=== PATIENT | male | born 1950 | race Caucasian/White ===

== ENCOUNTER 2022-10-01 14:42 | Inpatient (IN) ==
[2022-10-01] MEDS ORDERED: VENTOLIN or PROAIR HFA IN PRN (18:28)
[2022-10-01] MEDS ORDERED: LR 1,000 ML IV 1,000 ML IV ONE ×2 (18:45→19:34)
[2022-10-01 19:34] LABS: BASOPHILS # (AUTO) 0.1 X10^3/uL (0.0-0.1); BASOPHILS % (AUTO) 0.8 % (0.2-1.0); EOSINOPHILS % (AUTO) 0.6 % (0.9-2.9); HEMATOCRIT 41.4 % (42.0-54.0); HEMOGLOBIN 13.4 g/dL (13.5-18.0); LYMPHOCYTES % (AUTO) 12.9 % (21.0-51.0); MEAN CORPUSCULAR HEMOGLOBIN 25.6 pg (27.0-34.0); MEAN CORPUSCULAR HGB CONC 32.4 g/dL (33.0-35.0); MEAN PLATELET VOLUME 7.9 fL (7.4-11.0); MONOCYTES # (AUTO) 0.8 x10^3/uL (0.3-0.8); MONOCYTES % (AUTO) 9.9 % (0.0-13.0); NEUTROPHILS % (AUTO) 75.8 % (42.0-75.0); RED BLOOD COUNT 5.24 X10^6/uL (4.7-6.0); RED CELL DISTRIBUTION WIDTH 18.5 % (11.6-16.5); WHITE BLOOD COUNT 7.9 X10^3/uL (3.6-10.0)
[2022-10-01] MEDS ORDERED: CRESTOR TAB 10 MG PO ONE (19:34)
[2022-10-01] MEDS: LR 1,000 ML IV 1,000 ML IV SCH (19:44)
[2022-10-01 20:36] LABS: ALANINE AMINOTRANSFERASE 33 Units/L (12-78); ALBUMIN 3.4 g/dL (3.4-5.0); ALKALINE PHOSPHATASE 120 Units/L (46-116); ASPARTATE AMINO TRANSFERASE 34 Units/L (15-37); BLOOD UREA NITROGEN 23 mg/dL (7-18); CALCIUM 9.1 mg/dL (8.5-10.1); CARBON DIOXIDE 32.8 mmol/L (21-32); CHLORIDE 100 mmol/L (98-107); CREATININE 1.13 mg/dL (0.70-1.30); SODIUM 139 mmol/L (136-145); TOTAL PROTEIN 7.6 g/dL (6.4-8.2); eGFR NON BLACK RACES > 60 (>60)
[2022-10-01] MEDS ORDERED: PERCOCET TAB 5/325 MG ONE (20:50)
[2022-10-01] MEDS: CRESTOR TAB 10 MG PO SCH (20:55)
[2022-10-01] MEDS: PERCOCET TAB 5/325 MG PO PRN (20:57)
--- NOTE | 2022-10-01 23:20 | DR.UPDATE ---
H&P UPDATE Review Yes Any changes to H&P?: Yes
[2022-10-01] MEDS ORDERED: XOPENEX 1.25 MG/3 ML NEBULE NEB ONE (23:55)
[2022-10-02] MEDS: XOPENEX 1.25 MG/3 ML NEBULE NEB PRN ×3 (00:12→20:16)
[2022-10-02] MEDS: LR 1,000 ML IV 1,000 ML IV SCH ×3 (05:50→21:37)
[2022-10-02] MEDS ORDERED: LOVENOX INJ 40 MG SYR SC ONE (08:40)
[2022-10-02] MEDS ORDERED: PERCOCET TAB 5/325 MG ONE (08:48)
[2022-10-02] MEDS: PERCOCET TAB 5/325 MG PO PRN ×2 (08:54→19:04)
[2022-10-02] MEDS: LOVENOX INJ 40 MG SYR SC SCH (08:55)
[2022-10-02] MEDS ORDERED: REFLEX: PROVENTIL NEB & PulmiCORT NEB~ NEB SCH (09:00)
--- NOTE | 2022-10-02 17:05 | EKG ---
Test Reason : md order Blood Pressure : */* mmHG Vent. Rate : 113 BPM Atrial Rate : 286 BPM P-R Int : * ms QRS Dur : 90 ms QT Int : 278 ms P-R-T Axes : * 4 25 degrees QTc Int : 381 ms Atrial flutter with variable AV block Nonspecific ST abnormality Abnormal ECG Confirmed by Guanaco Daiz ([id number]) on 10/03/2022 7:43:31 AM Referred By: Confirmed By: Guanaco Diaz
--- NOTE | 2022-10-02 17:59 | NOTE.SOAP ---
Soap Note Note for Day of Date of Exam: 10/02/22 Subjective Data Subjective Data: Non healing wound dorsum of the left foot with significant swelling most likely venous in origin Objective Data Temperature: 97.5 F Pulse Rate: 117 Respiratory Rate: 24 Blood Pressure: 161/75 O2 Sat by Pulse Oximetry: 91 Objective Data: Wound unchanged left dorsal foot. Arterial doppler shows biphasic flow throughout left leg and foot , right leg with monophasic flow beginning in the right SFA and continued distally but good velocities of the left leg arteries . Venous insufficiency studies show clinical consistency with bilateral iliac vein compressio, worse on left and bilateral greater saphenous vein insufficiency. Assessment Assessment: Bilateral iliac vein compression , worse on left . Bilateral greater saphenous vein insufficiency. Plan Plan: Plan bilateral iliac venograms and bilateral iliac vein intravascular ultrasound and possible stenting of the left iliac vein.
[2022-10-02] MEDS: CRESTOR TAB 10 MG PO SCH (20:54)
[2022-10-03] MEDS: XOPENEX 1.25 MG/3 ML NEBULE NEB PRN ×3 (00:02→14:03)
--- NOTE | 2022-10-03 07:11 | RAD ---
HISTORYVenous insufficiencySTUDYChest AP [id number] ent is rotated to the left. The heart is enlarged. Interstitial lung changes are present diffusely and bilaterally more prominent than on the prior examination. Findings are suspicious for interstitial edema although acute pneumonitis and atypical pneumonia could have this appearance. Additionally there is some hazy infiltrate in the right lower lobe which could represent pneumonia or asymmetric alveolar edema. No pleural effusions are identified. Bony thorax is unremarkable.IMPRESSIONCardiomegaly with diffuse interstitial infiltrates most suspicious for interstitial pulmonary edema although atypical pneumonia and acute pneumonitis could have this appearance and clinical correlation will be requiredHazy infiltrate in the right lung base which could represent pneumonia or asymmetric alveolar pulmonary edema.Electronically signed by: GABRIELLA MENENDEZ (Oct 03, 2022 07:09:29)
--- NOTE | 2022-10-03 08:39 | VAS ---
HISTORYIschemia in the left leg. Evaluate for occlusion.STUDYLOWER EXT ARTERIALCOMPARISONNoneTECHNIQUETwenty-on e images made by the lead maintenance technician. Barker scale and color flow Doppler images of the right and left lower extremity arterial system were obtained. Velocities are measured in centimeters per second.FINDINGSRight lower extremity:REHABILITATION TEAM LEAD: PSV: 92Waveform: TriphasicSFA proximal: PSV: 93Waveform: TriphasicSFA middle: PSV: 78Waveform: TriphasicSFA distal: PSV: 90Waveform: TriphasicPop: PSV: 68Waveform: BiphasicPosterior tibial artery velocities measured 82, 57, and 40. The waveforms were biphasic. Dorsalis pedis artery velocity measured 51. The waveform was biphasic.Findings indicate no significant right lower extremity arterial occlusive disease.Left lower extremity:REHABILITATION TEAM LEAD: PSV: 180Waveform: BiphasicSFA proximal: PSV: 121Waveform: MonophasicSFA middle: PSV: 132Waveform: MonophasicSFA distal: PSV: Not measurableWaveform: Probably occludedPop: PSV: 119Waveform: Triphasic becoming monophasic distallyPosterior tibial artery velocities measured 26, 61, and 59. Waveforms were monophasic and staccato. Dorsalis pedis artery velocity measured 99. Waveform was monophasic.Findings suggest mild to moderate disease in the proximal SFA. This is followed by occlusion of the distal SFA. And then probably moderate disease in posterior tibial artery proximally. But MUFFLER HAND and the DPA were patent.IMPRESSION1. Occluded distal left SFA but with 2 vessel runoff to the left foot; moderate left MUFFLER HAND disease2. No significant right lower extremity occlusive diseaseElectronically signed by: Michael Ruelas (Oct 03, 2022 08:38:07)
[2022-10-03] MEDS: LOVENOX INJ 40 MG SYR SC SCH (09:48)
[2022-10-03] MEDS ORDERED: LR 1,000 ML IV 1,000 ML IV ONE (11:52)
[2022-10-03] MEDS ORDERED: NS 100 ML IV 100 ML ONE (11:52)
[2022-10-03] MEDS ORDERED: ANCEF VIAL 1 GRAM ONE (11:53)
[2022-10-03] MEDS ORDERED: MARCAINE/EPINEPHRINE ONE (12:24)
[2022-10-03] MEDS ORDERED: HEPARIN SODIUM IN D5W 75,000 UNITS/1,500 ML BAG ONE (12:25)
[2022-10-03] MEDS ORDERED: ZOFRAN INJ 4 MG VIAL ONE (12:34)
[2022-10-03] MEDS ORDERED: PEPCID 20 MG VIAL ONE (12:34)
[2022-10-03] MEDS ORDERED: OFIRMEV IV 1000 MG VIAL 0 MG/0 ML VIAL IV ONE (12:34)
[2022-10-03] MEDS ORDERED: ROBINUL ONE (12:34)
[2022-10-03] MEDS ORDERED: DECADRON INJ ONE (12:34)
[2022-10-03] MEDS ORDERED: DIPRIVAN VIAL 0 ML ONE (12:34)
[2022-10-03] MEDS ORDERED: VERSED ONE (12:35)
[2022-10-03] MEDS ORDERED: KETAMINE HCL ONE (12:35)
[2022-10-03] MEDS ORDERED: FENTANYL VIAL INJ 100 mcg ONE (12:35)
[2022-10-03] MEDS ORDERED: LASIX IVP ONE ×2 (13:04→13:06)
[2022-10-03 14:18] LABS: BASOPHILS % (AUTO) 0.3 % (0.2-1.0); EOSINOPHILS % (AUTO) 0.1 % (0.9-2.9); HEMATOCRIT 42.7 % (42.0-54.0); HEMOGLOBIN 13.8 g/dL (13.5-18.0); LYMPHOCYTES # (AUTO) 0.6 X10^3/uL (1.3-2.9); MEAN CORPUSCULAR HEMOGLOBIN 25.7 pg (27.0-34.0); MEAN CORPUSCULAR HGB CONC 32.4 g/dL (33.0-35.0); MEAN CORPUSCULAR VOLUME 79.5 fL (80.0-100.0); MEAN PLATELET VOLUME 7.8 fL (7.4-11.0); MONOCYTES # (AUTO) 0.5 x10^3/uL (0.3-0.8); MONOCYTES % (AUTO) 6.3 % (0.0-13.0); NEUTROPHILS # (AUTO) 7.4 x10^3/uL (2.2-4.8); NEUTROPHILS % (AUTO) 86.3 % (42.0-75.0); RED BLOOD COUNT 5.37 X10^6/uL (4.7-6.0); RED CELL DISTRIBUTION WIDTH 18.1 % (11.6-16.5); WHITE BLOOD COUNT 8.6 X10^3/uL (3.6-10.0)
[2022-10-03 14:24] LABS: INR 1.11 (0.8-1.3)
[2022-10-03 14:28] LABS: ALANINE AMINOTRANSFERASE 31 Units/L (12-78); ALBUMIN 3.5 g/dL (3.4-5.0); ALKALINE PHOSPHATASE 119 Units/L (46-116); ASPARTATE AMINO TRANSFERASE 22 Units/L (15-37); BLOOD UREA NITROGEN 15 mg/dL (7-18); CARBON DIOXIDE 35.1 mmol/L (21-32); CHLORIDE 99 mmol/L (98-107); COR NA(FOR HYPERGLY) 139 mmol/L (136-145); CREATINE KINASE 53 Units/L (39-308); CREATININE 0.88 mg/dL (0.70-1.30); SODIUM 138 mmol/L (136-145); TOTAL PROTEIN 7.8 g/dL (6.4-8.2); eGFR NON BLACK RACES > 60 (>60)
[2022-10-03] MEDS ORDERED: NORMODYNE INJ 20 MG VIAL IVP PRN (14:32)
[2022-10-03] MEDS ORDERED: NORMODYNE INJ 100 MG VIAL ONE (14:34)
--- NOTE | 2022-10-03 15:08 | EKG ---
Test Reason : tachycardia Blood Pressure : */* mmHG Vent. Rate : 107 BPM Atrial Rate : 271 BPM P-R Int : * ms QRS Dur : 88 ms QT Int : 326 ms P-R-T Axes : * 45 42 degrees QTc Int : 435 ms Atrial flutter with variable AV block Nonspecific ST abnormality Abnormal ECG When compared with ECG of 03-OCT-2022 12:51, (Unconfirmed) Atrial flutter has replaced Atrial fibrillation ST elevation now present in Inferior leads Confirmed by Guanaco Diaz ([id number]) on 10/05/2022 8:19:49 AM Referred By: Confirmed By: Guanaco Diaz
--- NOTE | 2022-10-03 15:19 | EKG ---
Test Reason : CHEST PAIN Blood Pressure : */* mmHG Vent. Rate : 111 BPM Atrial Rate : * BPM P-R Int : * ms QRS Dur : 84 ms QT Int : 346 ms P-R-T Axes : * 35 51 degrees QTc Int : 470 ms Atrial flutter Abnormal ECG When compared with ECG of 01-OCT-2022 18:56, Atrial fibrillation has replaced Atrial flutter Nonspecific T wave abnormality no longer evident in Anterior leads Confirmed by Guanaco Diaz ([id number]) on 10/05/2022 8:20:29 AM Referred By: Confirmed By: Guanaco Diaz
--- NOTE | 2022-10-03 15:29 | RAD ---
EXAM: CHEST X-RAYHISTORY: New onset of atrial fibrillation. COPD. Lung cancer.TECHNIQUE: AP CXR dated October 03, 2022 at 1:56 PM.COMPARISON: CXR dated SeptemberOctober 02, 2022 at 4:14 AM.FINDINGS:Note: Exam again degraded by patient rotation to the left.There is evidence for cardiomegaly. The pulmonary vascularity and interstitial markings are diffusely prominent, consistent with moderate to severe CHF or volume overload in the appropriate clinical setting; differential diagnosis includes (but is not limited to) interstitial pneumonia in the appropriate clinical setting.There is no gross focal lung consolidation, pleural effusion, or pneumothorax seen. The visualized bony structures are within normal limits.IMPRESSION:1. Findings consistent with moderate to severe CHF or volume overload in the appropriate clinical setting (with significant interval progression of infiltrates compared with the previous exam); DDX includes (but is not limited to) interstitial pneumonia in the appropriate clinical setting.2. Recommend clinical correlation and appropriate follow-up CXR evaluation to ensure interval clearance as clinically warranted.3. Consider follow-up noncontrast chest CT for further characterization as clinically warranted.Electronically signed by: Yris Blood (Oct 03, 2022 15:14:04)
[2022-10-03] MEDS: XOPENEX 1.25 MG/3 ML NEBULE NEB SCH ×2 (17:07→20:55)
[2022-10-03] MEDS: LR 1,000 ML IV 1,000 ML IV SCH (18:57)
[2022-10-03] MEDS: PERCOCET TAB 5/325 MG PO PRN (18:58)
[2022-10-03] MEDS: LOPRESSOR TAB 50 MG PO SCH (20:04)
[2022-10-03] MEDS: CRESTOR TAB 10 MG PO SCH (20:04)
--- NOTE | 2022-10-03 20:34 | NOTE.SOAP ---
Soap Note Note for Day of Date of Exam: 10/03/22 Subjective Data Subjective Data: Patient with non-healing wound to the left dorsal foot believed to be secondary to iliac vein compression with near normal ankle brachial indices .Patient known to have atrial flutter with controlled rate pre-op. He had been receiving Lovenox and on arriving to the operating room on laying down became very anxious, tachycardic, and hypertensive. EKG showed atrial fibrillation with rate of approximately 140. It was treated with beta denisse. He denies chest pain. Shortness of breath resolved with breathing treatment. Placed in the ICU.Doctor John consulted. Troponin elevated at 147. repeat several hours later 147.CXR showed pulmonary congestion. Given IV lasix Objective Data Temperature: 97.5 F Pulse Rate: 110 Respiratory Rate: 22 Blood Pressure: 134/64 O2 Sat by Pulse Oximetry: 95 Objective Data: A& O x 3 . No chest pain . After lasix chest clear. Incidentally LE arterial duplex interpreted as normal right sided atudy and occlusion of the lef distal SFA. Assessment Assessment: new onset atrial fibrillation, hypertension pre op. Surgery cancelled Plan Plan: Further evaluation per Dr Lopez. If cleared will plan iliac vein stenting and possible left leg arterial intervention next week.
[2022-10-03] MEDS ORDERED: LANOXIN INJ IVP ONE (20:57)
[2022-10-04] MEDS: LR 1,000 ML IV 1,000 ML IV SCH ×2 (03:15→12:05)
[2022-10-04 05:34] LABS: BASOPHILS % (AUTO) 0.5 % (0.2-1.0); EOSINOPHILS % (AUTO) 0.5 % (0.9-2.9); HEMATOCRIT 38.8 % (42.0-54.0); HEMOGLOBIN 12.5 g/dL (13.5-18.0); LYMPHOCYTES # (AUTO) 1.2 X10^3/uL (1.3-2.9); MEAN CORPUSCULAR HEMOGLOBIN 25.6 pg (27.0-34.0); MEAN CORPUSCULAR HGB CONC 32.2 g/dL (33.0-35.0); MEAN CORPUSCULAR VOLUME 79.4 fL (80.0-100.0); MEAN PLATELET VOLUME 8.1 fL (7.4-11.0); MONOCYTES # (AUTO) 1.1 x10^3/uL (0.3-0.8); RED BLOOD COUNT 4.88 X10^6/uL (4.7-6.0); RED CELL DISTRIBUTION WIDTH 18.5 % (11.6-16.5); WHITE BLOOD COUNT 8.4 X10^3/uL (3.6-10.0)
[2022-10-04 05:47] LABS: ALANINE AMINOTRANSFERASE 26 Units/L (12-78); ALKALINE PHOSPHATASE 102 Units/L (46-116); ASPARTATE AMINO TRANSFERASE 23 Units/L (15-37); BLOOD UREA NITROGEN 19 mg/dL (7-18); CALCIUM 8.7 mg/dL (8.5-10.1); CARBON DIOXIDE 38.9 mmol/L (21-32); CHLORIDE 101 mmol/L (98-107); COR CA(FOR HYPOALB) 9.5 mg/dL (8.5-10.1); CREATININE 0.95 mg/dL (0.70-1.30); SODIUM 141 mmol/L (136-145); TOTAL PROTEIN 6.6 g/dL (6.4-8.2); eGFR NON BLACK RACES > 60 (>60)
[2022-10-04] MEDS ORDERED: LASIX IVP ONE (06:08)
[2022-10-04] MEDS ORDERED: LASIX ONE (06:12)
[2022-10-04] MEDS: XOPENEX 1.25 MG/3 ML NEBULE NEB SCH ×5 (06:56→21:30)
[2022-10-04] MEDS: LOVENOX INJ 40 MG SYR SC SCH (08:02)
[2022-10-04] MEDS: LOPRESSOR TAB 50 MG PO SCH ×2 (08:02→20:40)
[2022-10-04] MEDS ORDERED: XARELTO PO SCH (10:00)
[2022-10-04] MEDS: LANOXIN PO SCH (10:10)
[2022-10-04] MEDS: PERCOCET TAB 5/325 MG PO PRN ×2 (14:01→21:21)
[2022-10-04] MEDS: LASIX IVP SCH (16:58)
[2022-10-04] MEDS: CRESTOR TAB 10 MG PO SCH (20:40)
[2022-10-05] MEDS: LR 1,000 ML IV 1,000 ML IV SCH ×2 (04:35→15:52)
[2022-10-05 04:53] LABS: BASOPHILS # (AUTO) 0.1 X10^3/uL (0.0-0.1); BASOPHILS % (AUTO) 1.1 % (0.2-1.0); EOSINOPHILS % (AUTO) 0.7 % (0.9-2.9); HEMOGLOBIN 12.1 g/dL (13.5-18.0); LYMPHOCYTES # (AUTO) 1.2 X10^3/uL (1.3-2.9); LYMPHOCYTES % (AUTO) 17.1 % (21.0-51.0); MEAN CORPUSCULAR HEMOGLOBIN 25.2 pg (27.0-34.0); MEAN CORPUSCULAR HGB CONC 31.9 g/dL (33.0-35.0); MEAN CORPUSCULAR VOLUME 79.1 fL (80.0-100.0); MEAN PLATELET VOLUME 8.2 fL (7.4-11.0); MONOCYTES # (AUTO) 0.8 x10^3/uL (0.3-0.8); MONOCYTES % (AUTO) 11.5 % (0.0-13.0); NEUTROPHILS % (AUTO) 69.6 % (42.0-75.0); RED BLOOD COUNT 4.81 X10^6/uL (4.7-6.0); RED CELL DISTRIBUTION WIDTH 18.2 % (11.6-16.5); WHITE BLOOD COUNT 7.2 X10^3/uL (3.6-10.0)
[2022-10-05 05:04] LABS: ALANINE AMINOTRANSFERASE 24 Units/L (12-78); ALBUMIN 2.9 g/dL (3.4-5.0); ALKALINE PHOSPHATASE 96 Units/L (46-116); ASPARTATE AMINO TRANSFERASE 24 Units/L (15-37); BLOOD UREA NITROGEN 24 mg/dL (7-18); CALCIUM 8.6 mg/dL (8.5-10.1); CARBON DIOXIDE 38.1 mmol/L (21-32); CHLORIDE 98 mmol/L (98-107); COR CA(FOR HYPOALB) 9.5 mg/dL (8.5-10.1); CREATININE 1.15 mg/dL (0.70-1.30); DIGOXIN < 0.30 ng/mL (0.9-2); SODIUM 140 mmol/L (136-145); TOTAL PROTEIN 6.7 g/dL (6.4-8.2); eGFR NON BLACK RACES > 60 (>60)
[2022-10-05] MEDS: LOPRESSOR TAB 50 MG PO SCH ×2 (08:07→20:20)
[2022-10-05] MEDS: LOVENOX INJ 40 MG SYR SC SCH (08:07)
[2022-10-05] MEDS: LASIX IVP SCH (08:08)
[2022-10-05] MEDS: LANOXIN PO SCH (08:08)
[2022-10-05] MEDS: XOPENEX 1.25 MG/3 ML NEBULE NEB SCH ×4 (08:34→20:54)
[2022-10-05] MEDS: PERCOCET TAB 5/325 MG PO PRN ×2 (11:18→19:08)
--- NOTE | 2022-10-05 11:42 | PCM.PROG ---
Progress Note Progress Note for Day of Date of Exam: 10/05/22 Subjective Subjective: Patient seen at bedside, no acute events overnight. He is currently in the ICU due to atrial fibrillation with RVR and CHF exacerbation. Patient was admitted after his left leg vascular procedure was cancelled as he was noted to have elevated HR and HTN prior to surgery. He has a non-healing ulcer on the left foot for over a year. He reports having hx of afib before. He does not see cardio. His HR today has been around 98-109. He is currently on 4L NC, sats >95%. He does use 2L Home O2. He has also been coughing a lot. Echo is pending. Labs Hgb 12.1 BUN/Cr /.15 BNP 923 Echo pending Plan: continue current care in ICU, telemetry. Will repeat CXR. Monitor HR. Wean O2 as tolerated to keep sats > 92%. Follow echo results. Daily weight, strict I&Os. Follow vascular recommendations. Continue digoxin and metoprolol tartrate. Resume Lasix 20 mg PO daily. Monitor AM labs/imaging. Past Medical Family Social History Allergies: Allergies No Known Drug Allergies Allergy (Verified 01/16/22 13:44) Vital Signs and I&O's Vital Signs: Temperature 98.1 F Pulse Rate [Brachial] 124 Pulse Rate 98 Respiratory Rate 22 Blood Pressure [Left Arm] 156/94 Blood Pressure [Right Arm] 132/74 Blood Pressure 141/74 O2 Sat by Pulse Oximetry 99 Intake and Output: Intake & Output 10/02/22 10/03/22 10/04/22 10/05/22 23:59 23:59 23:59 23:59 Intake Total 3131 / 3131 1314 / 1314 2018 340 / 340 Output Total 900 / 900 2620 / 2620 2375 / 2375 250 / 250 Balance 2231 / 2231 -1306 / -1306 -356 / -356 90 / 90 Physical Exam Oriented: Normal Eyes: Normal Respiratory: Generalized, Rales and Rhonchi Cardiovascular: Tachycardia and Irregular Auscultation: Bowel Sounds: Normal Palpation: Normal Tenderness: Normal Musculoskeletal: Left, Leg and Foot (chronic ulcer noted with erythema, no drainage ) Mood Description: Calm and Appropriate Speech Pattern: Clear and Appropriate Laboratory and Diagnostics Result Diagrams: 10/05/22 04:03 10/05/22 04:03 Labs: Laboratory WBC 7.2 X10^3/uL (3.6-10.0) 10/05/22 04:03 RBC 4.81 X10^6/uL (4.7-6.0) 10/05/22 04:03 Hgb 12.1 g/dL (13.5-18.0) L 10/05/22 04:03 Hct 38.0 % (42.0-54.0) L 10/05/22 04:03 MCV 79.1 fL (80.0-100.0) L 10/05/22 04:03 MCH 25.2 pg (27.0-34.0) L 10/05/22 04:03 MCHC 31.9 g/dL (33.0-35.0) L 10/05/22 04:03 RDW 18.2 % (11.6-16.5) H 10/05/22 04:03 Plt Count 168 X10^3/uL (150.0-450.0) 10/05/22 04:03 MPV 8.2 fL (7.4-11.0) 10/05/22 04:03 Neut % (Auto) 69.6 % (42.0-75.0) 10/05/22 04:03 Lymph % (Auto) 17.1 % (21.0-51.0) L 10/05/22 04:03 [place] % (Auto) 11.5 % (0.0-13.0) 10/05/22 04:03 Eos % (Auto) 0.7 % (0.9-2.9) L 10/05/22 04:03 Baso % (Auto) 1.1 % (0.2-1.0) H 10/05/22 04:03 Neut # (Auto) 5.0 x10^3/uL (2.2-4.8) H 10/05/22 04:03 Lymph # (Auto) 1.2 X10^3/uL (1.3-2.9) L 10/05/22 04:03 [place] # (Auto) 0.8 x10^3/uL (0.3-0.8) 10/05/22 04:03 Eos # (Auto) 0.0 x10^3/uL (0.0-0.2) 10/05/22 04:03 Baso # (Auto) 0.1 X10^3/uL (0.0-0.1) 10/05/22 04:03 Absolute Nucleated RBC 0.0 /100WBC 10/05/22 04:03 PT 14.0 SECONDS (11.8-14.3) 10/03/22 14:02 INR Target Range - 10/03/22 14:02 INR 1.11 (0.8-1.3) 10/03/22 14:02 APTT 36.4 SECONDS (22.9-36.5) 10/03/22 14:02 PTT Comment - 10/03/22 14:02 Sodium 140 mmol/L (136-145) 10/05/22 04:03 Corrected Sodium TNP 10/05/22 04:03 Potassium 4.2 mmol/L (3.5-5.1) 10/05/22 04:03 Chloride 98 mmol/L (98-107) 10/05/22 04:03 Carbon Dioxide 38.1 mmol/L (21-32) H 10/05/22 04:03 BUN 24 mg/dL (7-18) H 10/05/22 04:03 Creatinine 1.15 mg/dL (0.70-1.30) 10/05/22 04:03 Est GFR (MDRD) Af Amer > 60 (>60) 10/05/22 04:03 Est GFR (MDRD) Non-Af > 60 (>60) 10/05/22 04:03 Glucose 97 mg/dL (65-99) 10/05/22 04:03 Calcium 8.6 mg/dL (8.5-10.1) 10/05/22 04:03 Corrected Calcium 9.5 mg/dL (8.5-10.1) 10/05/22 04:03 Total Bilirubin 0.80 mg/dL (0.2-1.0) 10/05/22 04:03 AST 24 Units/L (15-37) 10/05/22 04:03 ALT 24 Units/L (12-78) 10/05/22 04:03 Alkaline Phosphatase 96 Units/L (46-116) 10/05/22 04:03 Creatine Kinase 53 Units/L (39-308) 10/03/22 14:02 Troponin I High Sens 119.8 ng/L (4.0-60.0) H* 10/04/22 04:25 B-Natriuretic Peptide 923 pg/mL (0-79) H* 10/04/22 04:25 Total Protein 6.7 g/dL (6.4-8.2) 10/05/22 04:03 Albumin 2.9 g/dL (3.4-5.0) L 10/05/22 04:03 Globulin 3.8 g/dL (2.5-4.5) 10/05/22 04:03 Albumin/Globulin Ratio 0.8 Ratio (1.1-2.1) L 10/05/22 04:03 Digoxin < 0.30 ng/mL (0.9-2) L 10/05/22 04:03 Plan (1) Atrial fibrillation with rapid ventricular response: Status: Acute (2) CHF exacerbation: Status: Acute (3) Venous ulcer of lower extremity due to chronic peripheral venous hypertension: Status: Acute (4) Venous insufficiency of both lower extremities: Status: Acute (5) Anemia: Status: Acute
[2022-10-05] MEDS: LASIX PO SCH (12:08)
--- NOTE | 2022-10-05 13:45 | RAD ---
HISTORYCough congestion lung CASTUDYAP chestCOMPARISONMar 2022FINDINGSCardiomegaly with pulmonary vascular distention and diffuse interstitial prominence throughout the lungs. The left lower lobe is incompletely evaluated because of cardiac density. There is no large pleural effusion or pneumothorax.IMPRESSIONNo definite change since recent similar. Cardiac prominence is stable with diffuse bilateral pulmonary densities consistent with any combination of pneumonia and CHF/pulmonary edema.Electronically signed by: ATUL NEWTON (Oct 05, 2022 13:43:39)
[2022-10-05] MEDS: CRESTOR TAB 10 MG PO SCH (20:20)
[2022-10-06] MEDS: PERCOCET TAB 5/325 MG PO PRN ×2 (01:35→23:58)
[2022-10-06] MEDS: LR 1,000 ML IV 1,000 ML IV SCH ×3 (03:27→16:02)
[2022-10-06 05:01] LABS: BASOPHILS # (AUTO) 0.1 X10^3/uL (0.0-0.1); BASOPHILS % (AUTO) 1.8 % (0.2-1.0); EOSINOPHILS # (AUTO) 0.1 x10^3/uL (0.0-0.2); EOSINOPHILS % (AUTO) 1.8 % (0.9-2.9); HEMATOCRIT 38.5 % (42.0-54.0); HEMOGLOBIN 12.3 g/dL (13.5-18.0); LYMPHOCYTES # (AUTO) 0.9 X10^3/uL (1.3-2.9); LYMPHOCYTES % (AUTO) 13.4 % (21.0-51.0); MEAN CORPUSCULAR HEMOGLOBIN 25.3 pg (27.0-34.0); MEAN CORPUSCULAR HGB CONC 32.1 g/dL (33.0-35.0); MEAN CORPUSCULAR VOLUME 78.9 fL (80.0-100.0); MEAN PLATELET VOLUME 8.1 fL (7.4-11.0); MONOCYTES # (AUTO) 0.9 x10^3/uL (0.3-0.8); MONOCYTES % (AUTO) 13.9 % (0.0-13.0); NEUTROPHILS # (AUTO) 4.5 x10^3/uL (2.2-4.8); NEUTROPHILS % (AUTO) 69.1 % (42.0-75.0); RED BLOOD COUNT 4.87 X10^6/uL (4.7-6.0); RED CELL DISTRIBUTION WIDTH 18.6 % (11.6-16.5); WHITE BLOOD COUNT 6.6 X10^3/uL (3.6-10.0)
[2022-10-06 05:14] LABS: BLOOD UREA NITROGEN 24 mg/dL (7-18); CALCIUM 8.5 mg/dL (8.5-10.1); CARBON DIOXIDE 40.5 mmol/L (21-32); CHLORIDE 96 mmol/L (98-107); COR NA(FOR HYPERGLY) 139 mmol/L (136-145); CREATININE 1.06 mg/dL (0.70-1.30); DIGOXIN 0.54 ng/mL (0.9-2); SODIUM 139 mmol/L (136-145); eGFR NON BLACK RACES > 60 (>60)
[2022-10-06] MEDS: LOPRESSOR TAB 50 MG PO SCH ×2 (08:04→20:22)
[2022-10-06] MEDS: LANOXIN PO SCH (08:05)
[2022-10-06] MEDS: LASIX PO SCH (08:06)
[2022-10-06] MEDS: LOVENOX INJ 40 MG SYR SC SCH (08:06)
[2022-10-06] MEDS: XOPENEX 1.25 MG/3 ML NEBULE NEB SCH ×4 (08:43→20:02)
--- NOTE | 2022-10-06 11:06 | PCM.PROG ---
Progress Note Progress Note for Day of Date of Exam: 10/06/22 Subjective Subjective: Patient seen at bedside, no acute events overnight. He is currently in the ICU due to atrial fibrillation with RVR and CHF exacerbation. Patient was admitted after his left leg vascular procedure was cancelled as he was noted to have elevated HR and HTN prior to surgery. He has a non-healing ulcer on the left foot for over a year. He reports having hx of afib before. He does not see cardio. His HR today has been around 100. He is currently on 2L NC, sats >95%. He does use 2L Home O2. He has also been coughing a lot of sputum. Echo is pending. Labs Hgb 12.3 BUN/Cr /.06 CXR: b/l densities suggestive of pneumonia or pulmonary edema Echo pending Plan: continue current care in ICU, telemetry. Monitor HR. Start Rocephin and Doxycyline. Send sputum culture. Wean O2 as tolerated to keep sats > 92%. Follow echo results. Daily weight, strict I&Os. Follow vascular recommendations. Continue digoxin and metoprolol tartrate. Continue Lasix 20 mg PO daily. Monitor AM labs/imaging. Past Medical Family Social History Allergies: Allergies No Known Drug Allergies Allergy (Verified 01/16/22 13:44) Vital Signs and I&O's Vital Signs: Temperature 97.7 F Pulse Rate [Brachial] 124 Pulse Rate 102 Respiratory Rate 14 Blood Pressure [Left Arm] 156/94 Blood Pressure [Right Arm] 132/74 Blood Pressure 141/76 O2 Sat by Pulse Oximetry 98 Intake and Output: Intake & Output 10/03/22 10/04/22 10/05/22 10/06/22 23:59 23:59 23:59 23:59 Intake Total 1314 / 1314 2018 2586 / 2586 377 / 377 Output Total 2620 / 2620 2375 / 2375 3100 / 3100 300 / 300 Balance -1306 / -1306 -356 / -356 -514 / -514 / Physical Exam Oriented: Normal Eyes: Normal Respiratory: Generalized, Rales and Rhonchi Cardiovascular: Tachycardia and Irregular Auscultation: Bowel Sounds: Normal Tenderness: Normal Musculoskeletal: Left, Leg and Foot (chronic ulcer noted with erythema, no drainage ) Mood Description: Calm and Appropriate Speech Pattern: Clear and Appropriate Laboratory and Diagnostics Result Diagrams: 10/06/22 04:08 10/06/22 04:08 Labs: Laboratory WBC 6.6 X10^3/uL (3.6-10.0) 10/06/22 04:08 RBC 4.87 X10^6/uL (4.7-6.0) 10/06/22 04:08 Hgb 12.3 g/dL (13.5-18.0) L 10/06/22 04:08 Hct 38.5 % (42.0-54.0) L 10/06/22 04:08 MCV 78.9 fL (80.0-100.0) L 10/06/22 04:08 MCH 25.3 pg (27.0-34.0) L 10/06/22 04:08 MCHC 32.1 g/dL (33.0-35.0) L 10/06/22 04:08 RDW 18.6 % (11.6-16.5) H 10/06/22 04:08 Plt Count 171 X10^3/uL (150.0-450.0) 10/06/22 04:08 MPV 8.1 fL (7.4-11.0) 10/06/22 04:08 Neut % (Auto) 69.1 % (42.0-75.0) 10/06/22 04:08 Lymph % (Auto) 13.4 % (21.0-51.0) L 10/06/22 04:08 [place] % (Auto) 13.9 % (0.0-13.0) H 10/06/22 04:08 Eos % (Auto) 1.8 % (0.9-2.9) 10/06/22 04:08 Baso % (Auto) 1.8 % (0.2-1.0) H 10/06/22 04:08 Neut # (Auto) 4.5 x10^3/uL (2.2-4.8) 10/06/22 04:08 Lymph # (Auto) 0.9 X10^3/uL (1.3-2.9) L 10/06/22 04:08 [place] # (Auto) 0.9 x10^3/uL (0.3-0.8) H 10/06/22 04:08 Eos # (Auto) 0.1 x10^3/uL (0.0-0.2) 10/06/22 04:08 Baso # (Auto) 0.1 X10^3/uL (0.0-0.1) 10/06/22 04:08 Absolute Nucleated RBC 0.1 /100WBC 10/06/22 04:08 PT 14.0 SECONDS (11.8-14.3) 10/03/22 14:02 INR Target Range - 10/03/22 14:02 INR 1.11 (0.8-1.3) 10/03/22 14:02 APTT 36.4 SECONDS (22.9-36.5) 10/03/22 14:02 PTT Comment - 10/03/22 14:02 Sodium 139 mmol/L (136-145) 10/06/22 04:08 Corrected Sodium 139 mmol/L (136-145) 10/06/22 04:08 Potassium 3.9 mmol/L (3.5-5.1) 10/06/22 04:08 Chloride 96 mmol/L (98-107) L 10/06/22 04:08 Carbon Dioxide 40.5 mmol/L (21-32) H 10/06/22 04:08 BUN 24 mg/dL (7-18) H 10/06/22 04:08 Creatinine 1.06 mg/dL (0.70-1.30) 10/06/22 04:08 Est GFR (MDRD) Af Amer > 60 (>60) 10/06/22 04:08 Est GFR (MDRD) Non-Af > 60 (>60) 10/06/22 04:08 Glucose 116 mg/dL (65-99) H 10/06/22 04:08 Calcium 8.5 mg/dL (8.5-10.1) 10/06/22 04:08 Corrected Calcium 9.5 mg/dL (8.5-10.1) 10/05/22 04:03 Total Bilirubin 0.80 mg/dL (0.2-1.0) 10/05/22 04:03 AST 24 Units/L (15-37) 10/05/22 04:03 ALT 24 Units/L (12-78) 10/05/22 04:03 Alkaline Phosphatase 96 Units/L (46-116) 10/05/22 04:03 Creatine Kinase 53 Units/L (39-308) 10/03/22 14:02 Troponin I High Sens 119.8 ng/L (4.0-60.0) H* 10/04/22 04:25 B-Natriuretic Peptide 923 pg/mL (0-79) H* 10/04/22 04:25 Total Protein 6.7 g/dL (6.4-8.2) 10/05/22 04:03 Albumin 2.9 g/dL (3.4-5.0) L 10/05/22 04:03 Globulin 3.8 g/dL (2.5-4.5) 10/05/22 04:03 Albumin/Globulin Ratio 0.8 Ratio (1.1-2.1) L 10/05/22 04:03 Digoxin 0.54 ng/mL (0.9-2) L 10/06/22 04:08 Plan (1) Atrial fibrillation with rapid ventricular response: Status: Acute (2) Pneumonia: Status: Acute (3) CHF exacerbation: Status: Acute (4) Venous ulcer of lower extremity due to chronic peripheral venous hypertension: Status: Acute (5) Venous insufficiency of both lower extremities: Status: Acute (6) Anemia: Status: Acute
[2022-10-06] MEDS: ROCEPHIN VIAL 1 GRAM 1 G in NS 100 ML IV 100 ML IV SCH (11:20)
[2022-10-06] MEDS: VIBRAMYCIN PO SCH ×2 (11:21→20:22)
[2022-10-06] MEDS: SANTYL EXT SCH ×2 (13:36→20:21)
[2022-10-06] MEDS: CRESTOR TAB 10 MG PO SCH (20:22)
[2022-10-07] MEDS: XOPENEX 1.25 MG/3 ML NEBULE NEB SCH ×6 (01:39→20:13)
[2022-10-07] MEDS: LR 1,000 ML IV 1,000 ML IV SCH ×3 (04:36→20:27)
[2022-10-07 05:03] LABS: BASOPHILS % (AUTO) 0.7 % (0.2-1.0); EOSINOPHILS # (AUTO) 0.1 x10^3/uL (0.0-0.2); EOSINOPHILS % (AUTO) 1.1 % (0.9-2.9); HEMATOCRIT 39.5 % (42.0-54.0); HEMOGLOBIN 12.7 g/dL (13.5-18.0); LYMPHOCYTES # (AUTO) 0.8 X10^3/uL (1.3-2.9); LYMPHOCYTES % (AUTO) 13.6 % (21.0-51.0); MEAN CORPUSCULAR HEMOGLOBIN 25.6 pg (27.0-34.0); MEAN CORPUSCULAR HGB CONC 32.2 g/dL (33.0-35.0); MEAN CORPUSCULAR VOLUME 79.7 fL (80.0-100.0); MEAN PLATELET VOLUME 8.2 fL (7.4-11.0); MONOCYTES # (AUTO) 0.7 x10^3/uL (0.3-0.8); MONOCYTES % (AUTO) 11.4 % (0.0-13.0); NEUTROPHILS # (AUTO) 4.5 x10^3/uL (2.2-4.8); NEUTROPHILS % (AUTO) 73.2 % (42.0-75.0); RED BLOOD COUNT 4.95 X10^6/uL (4.7-6.0); RED CELL DISTRIBUTION WIDTH 18.6 % (11.6-16.5); WHITE BLOOD COUNT 6.1 X10^3/uL (3.6-10.0)
[2022-10-07 05:17] LABS: BLOOD UREA NITROGEN 18 mg/dL (7-18); CALCIUM 8.7 mg/dL (8.5-10.1); CARBON DIOXIDE 40.3 mmol/L (21-32); CHLORIDE 97 mmol/L (98-107); COR NA(FOR HYPERGLY) 139 mmol/L (136-145); CREATININE 0.92 mg/dL (0.70-1.30); DIGOXIN 0.78 ng/mL (0.9-2); SODIUM 139 mmol/L (136-145); eGFR NON BLACK RACES > 60 (>60)
[2022-10-07] MEDS: ROCEPHIN VIAL 1 GRAM 1 G in NS 100 ML IV 100 ML IV SCH (08:34)
[2022-10-07] MEDS: VIBRAMYCIN PO SCH ×2 (08:35→20:27)
[2022-10-07] MEDS: LANOXIN PO SCH (08:35)
[2022-10-07] MEDS: LASIX PO SCH (08:35)
[2022-10-07] MEDS: LOVENOX INJ 40 MG SYR SC SCH (08:36)
[2022-10-07] MEDS: SANTYL EXT SCH ×2 (08:36→20:27)
[2022-10-07] MEDS: LOPRESSOR TAB 50 MG PO SCH ×2 (08:36→20:26)
--- NOTE | 2022-10-07 10:18 | PCM.PROG ---
Progress Note - Progress Note for Day of Date of Exam: 10/04/22 - Subjective Subjective: IS A 71 YEAR OLD PATIENT OF AND ARIEL MORTON. HE WAS ADMITTED ON 10/01/22 FOR TREATMENT OF CRITICAL ISHEMIA OF THE LEFT LEG. PATIENT HAS A NON-HEALING WOUND TO THE LEFT LEG WELL BLUE DISCOLORATION THAT HAS BEEN PRESENT FOR THE PAST YEAR. ADDITIONALLY, HE HAS A HX OF ADENOCARCINOMA OF BOTH LUNGS THAT HAS BEEN TREATED WITH CHEMOTHERAPY/RADIATION AND ULTIMATELY CYBERKNIFE. ADMITTED PATIENT FOR BILATERAL ILIAC VENOGRAMS AND BILATERAL ILIAC VEIN INTRAVASCULAR ULTRASOUNDS AND POSSIBLE STENTING OF THE LEFT ILIAC VEIN. ON THE MORNING OF PATIENTS PLANNED PROCEDURE, HE WAS NOTED TO BE TACHYCARDIC AND COMPLAINED OF CHEST DISCOMFORT AND SHORTNESS OF BREATH. HIS HEART RATE WAS NOTED TO BE IN THE 120s-130s AND HIS OXYGEN SATURATION WERE IN THE LOW 90s ON NASAL CANNULA AT 2 LPM. AN EKG WAS OBTAINED AND REVEALED ATRIAL FIBRILLATION WITH HR IN THE 140s. HIS BLOOD PRESSURE WAS NOTED TO BE ELEVATED AT 164/90. CHEST XRAY WAS CONSISTENT WITH MODERATE TO SEVERE CHF OR VOLUME OVERLOAD. HE IS NOT CURRENTLY MANAGED BY A SLIP COVER ESTIMATOR, BUT DOES REPORT A HX OF A-FIB IN THE PAST. HE ALSO USES HOME OXYGEN FOR HX OF COPD. WE WERE CONSULTED FOR MEDICAL MANAGEMENT. HE WAS GIVEN IV LASIX, A NEBULIZER TREATMENT, IV LABETALOL, AND LANOXIN 500MCG IV X 1 DOSE. HIS HR EVENTU ALLY DECREASED TO THE 90s AND BLOOD PRESSURE WAS CONTROLLED. HE WAS PLACED IN THE INTENSIVE CARE UNIT. ON THE MORNING OF 10/04/22, HE WAS ALERT AND ORIENTED, LYING IN BED ON MORNING ROUNDS. HE DENIES HAVING CHEST PAIN THIS MORNING, BUT DOES REPORT HAVING A NON-PRODUCTIVE COUGH AND SHORTNESS OF BREATH AT TIMES. ON EXAMINATION, HE CONTINUES TO BE TACHYCARDIC WITH IRREGULAR RHYTHM. HR HAS BEEN 100-120 THIS MORNING. BILATERAL LUNGS ARE NOTED WITH RHONCHI THROUGHOUT. ABDOMEN IS ROUND, SOFT, AND NON-TENDER WITH NORMAL BOWEL SOUNDS NOTED IN ALL QUADRANTS. LEFT FOOT CHRONIC ULCER NOTED WITH ERYTHEMA. NO DRAINAGE NOTED. TRACE EDEMA NOTED TO LOWER EXTREMITIES. HIS VITALS THIS MORNING ARE: 98.3-120-20-99%-130/58. HE IS CURRENTLY UTILIZING OXYGEN VIA NASAL CANNULA AT 4 LITERS/MINUTE. LABS WERE OBTAINED. WBC 8.4, RBC 4.88, HGB 12.5, HCT 38.8, SODIUM 141, POTASSIUM 4.4, CHLORIDE 101, CARBON DIOXIDE 38.9, BUN 19, CREATININE 0.95, GLUCOSE 100, CALCIUM 8.7, AST 23, ALT 26, ALK PHOS 102, TROPONIN 119.8, BNP 923, TOTAL PROTEIN 6.6, ALBUMIN 3.0, DIGOXIN <0.20. HE IS CURRENTLY RECEIVING LR AT [facility], LOVENOX 40MG SC DAILY, XOPENEX NEBS QID, ALBUTEROL INHALER Q6H PRN, METOPROLOL 50MG PO BID, PERCOCET 5/325MG Q4H PRN, AND CRESTOR 10MG PO HS. WE WILL OBTAIN AN ECHOCARDIOGRAM TODAY. WE WILL START DIGOXIN 0.25MG PO DAILY AND ADMINISTER LASIX 20MG IV Q12H X 2 DOSES. OTHERWISE, WE WILL FOLLOW-UP WITH AM LABS AND CONTINUE TO MONITOR. WILL FOLLOW. TIME SPENT ON CLINICAL ASSESSMENT, REVIWING LABS AND IMAGING, DECISION MAKING, AND DOCUMENTATION GREATER THAN 45 MINUTES. - Past Medical Family Social History Past Med/Fam/Surg Hx: No changes since H&P Allergies: Allergies No Known Drug Allergies Allergy (Verified 01/16/22 13:44) - Review of Systems ROS: No change since H&P - Vital Signs and I&O's Vital Signs: Temperature 97.9 F Pulse Rate [Brachial] 124 Pulse Rate 105 Respiratory Rate 26 Blood Pressure [Left Arm] 156/94 Blood Pressure [Right Arm] 132/74 Blood Pressure 159/70 O2 Sat by Pulse Oximetry 93 Intake and Output: Intake & Output 10/04/22 10/05/22 10/06/22 10/07/22 11:59 11:59 11:59 11:59 Intake Total 1348 / 1348 1831 / 1831 2623 / 2623 2044 / 2044 Output Total 2350 / 2350 2375 / 2375 3150 / 3150 1500 / 1500 Balance -1002 / -1002 -544 / -544 -527 / -527 544 / 544 - Physical Exam Oriented: Normal Eyes: Normal Ear: Normal Nose: Normal Throat: Normal Respiratory: Generalized, Rhonchi Cardiovascular: Tachycardia, Irregular : Normal Auscultation: Bowel Sounds: Normal Palpation: Normal Tenderness: Normal Skin: Normal Musculoskeletal: Left, Leg, Foot (chronic ulcer noted with erythema, no drainage) Psychiatric: Normal Mood Description: Calm, Appropriate Speech Pattern: Clear, Appropriate - Laboratory and Diagnostics Result Diagrams: 10/07/22 04:00 10/07/22 04:00 Labs: 10/06/22 13:25 Sputum - Expectorated Sputum - Final Laboratory WBC 6.1 X10^3/uL (3.6-10.0) 10/07/22 04:00 RBC 4.95 X10^6/uL (4.7-6.0) 10/07/22 04:00 Hgb 12.7 g/dL (13.5-18.0) L 10/07/22 04:00 Hct 39.5 % (42.0-54.0) L 10/07/22 04:00 MCV 79.7 fL (80.0-100.0) L 10/07/22 04:00 MCH 25.6 pg (27.0-34.0) L 10/07/22 04:00 MCHC 32.2 g/dL (33.0-35.0) L 10/07/22 04:00 RDW 18.6 % (11.6-16.5) H 10/07/22 04:00 Plt Count 183 X10^3/uL (150.0-450.0) 10/07/22 04:00 MPV 8.2 fL (7.4-11.0) 10/07/22 04:00 Neut % (Auto) 73.2 % (42.0-75.0) 10/07/22 04:00 Lymph % (Auto) 13.6 % (21.0-51.0) L 10/07/22 04:00 Luce % (Auto) 11.4 % (0.0-13.0) 10/07/22 04:00 Eos % (Auto) 1.1 % (0.9-2.9) 10/07/22 04:00 Baso % (Auto) 0.7 % (0.2-1.0) 10/07/22 04:00 Neut # (Auto) 4.5 x10^3/uL (2.2-4.8) 10/07/22 04:00 Lymph # (Auto) 0.8 X10^3/uL (1.3-2.9) L 10/07/22 04:00 Luce # (Auto) 0.7 x10^3/uL (0.3-0.8) 10/07/22 04:00 Eos # (Auto) 0.1 x10^3/uL (0.0-0.2) 10/07/22 04:00 Baso # (Auto) 0.0 X10^3/uL (0.0-0.1) 10/07/22 04:00 Absolute Nucleated RBC 0.0 /100WBC 10/07/22 04:00 PT 14.0 SECONDS (11.8-14.3) 10/03/22 14:02 INR Target Range - 10/03/22 14:02 INR 1.11 (0.8-1.3) 10/03/22 14:02 APTT 36.4 SECONDS (22.9-36.5) 10/03/22 14:02 PTT Comment - 10/03/22 14:02 Sodium 139 mmol/L (136-145) 10/07/22 04:00 Corrected Sodium 139 mmol/L (136-145) 10/07/22 04:00 Potassium 4.1 mmol/L (3.5-5.1) 10/07/22 04:00 Chloride 97 mmol/L (98-107) L 10/07/22 04:00 Carbon Dioxide 40.3 mmol/L (21-32) H 10/07/22 04:00 BUN 18 mg/dL (7-18) 10/07/22 04:00 Creatinine 0.92 mg/dL (0.70-1.30) 10/07/22 04:00 Est GFR (MDRD) Af Amer > 60 (>60) 10/07/22 04:00 Est GFR (MDRD) Non-Af > 60 (>60) 10/07/22 04:00 Glucose 117 mg/dL (65-99) H 10/07/22 04:00 Calcium 8.7 mg/dL (8.5-10.1) 10/07/22 04:00 Corrected Calcium 9.5 mg/dL (8.5-10.1) 10/05/22 04:03 Total Bilirubin 0.80 mg/dL (0.2-1.0) 10/05/22 04:03 AST 24 Units/L (15-37) 10/05/22 04:03 ALT 24 Units/L (12-78) 10/05/22 04:03 Alkaline Phosphatase 96 Units/L (46-116) 10/05/22 04:03 Creatine Kinase 53 Units/L (39-308) 10/03/22 14:02 Troponin I High Sens 119.8 ng/L (4.0-60.0) H* 10/04/22 04:25 B-Natriuretic Peptide 819 pg/mL (0-79) H* 10/07/22 04:00 Total Protein 6.7 g/dL (6.4-8.2) 10/05/22 04:03 Albumin 2.9 g/dL (3.4-5.0) L 10/05/22 04:03 Globulin 3.8 g/dL (2.5-4.5) 10/05/22 04:03 Albumin/Globulin Ratio 0.8 Ratio (1.1-2.1) L 10/05/22 04:03 Digoxin 0.78 ng/mL (0.9-2) L 10/07/22 04:00 - Plan (1) Atrial fibrillation with rapid ventricular response Status: Acute Plan: OBTAIN ECHO, SUPPLEMENTAL OXYGEN, LR AT [facility], LOVENOX 40MG SC DAILY, XOPENEX NEBS QID, ALBUTEROL INHALER Q6H PRN, DIGOXIN 0.25MG DAILY, LASIX 20MG IV Q12H X 2 DOSES, METOPROLOL 50MG PO BID, PERCOCET 5/325MG Q4H PRN, AND CRESTOR 10MG PO HS. (2) CHF exacerbation Status: Acute Qualifiers: Heart failure type: unspecified Qualified Code(s): I50.9 - Heart failure, unspecified (3) Venous ulcer of lower extremity due to chronic peripheral venous hyper tension Status: Acute (4) Anemia Status: Acute Qualifiers: Anemia type: iron deficiency Iron deficiency anemia type: chronic blood loss Qualified Code(s): D50.0 - Iron deficiency anemia secondary to blood loss (chronic) (5) Venous insufficiency of both lower extremities Status: Chronic (6) COPD (chronic obstructive pulmonary disease) Status: Chronic Qualifiers: COPD type: unspecified COPD Qualified Code(s): J44.9 - Chronic obstructive pulmonary disease, unspecified (7) HTN (hypertension) Status: Chronic Qualifiers: Hypertension type: primary hypertension Qualified Code(s): I10 - Essential (primary) hypertension
--- NOTE | 2022-10-07 10:28 | PCM.PROG ---
Progress Note - Progress Note for Day of Date of Exam: 10/07/22 - Subjective Subjective: IS A 71 YEAR OLD PATIENT OF AND ARIEL MORTON. HE WAS ADMITTED ON 10/01/22 FOR TREATMENT OF CRITICAL ISHEMIA OF THE LEFT LEG. PATIENT HAS A NON-HEALING WOUND TO THE LEFT LEG WELL BLUE DISCOLORATION THAT HAS BEEN PRESENT FOR THE PAST YEAR. ADDITIONALLY, HE HAS A HX OF ADENOCARCINOMA OF BOTH LUNGS THAT HAS BEEN TREATED WITH CHEMOTHERAPY/RADIATION AND ULTIMATELY CYBERKNIFE. ADMITTED PATIENT FOR BILATERAL ILIAC VENOGRAMS AND BILATERAL ILIAC VEIN INTRAVASCULAR ULTRASOUNDS AND POSSIBLE STENTING OF THE LEFT ILIAC VEIN. ON THE MORNING OF PATIENTS PLANNED PROCEDURE (10/03/22), HE WAS NOTED TO BE TACHYCARDIC AND COMPLAINED OF CHEST DISCOMFORT AND SHORTNESS OF BREATH. HIS HEART RATE WAS NOTED TO BE IN THE 120s-130s AND HIS OXYGEN SATURATION WERE IN THE LOW 90s ON NASAL CANNULA AT 2 LPM. AN EKG WAS OBTAINED AND REVEALED ATRIAL FIBRILLATION WITH HR IN THE 140s. HIS BLOOD PRESSURE WAS NOTED TO BE ELEVATED AT 164/90. CHEST XRAY WAS CONSISTENT WITH MODERATE TO SEVERE CHF OR VOLUME OVERLOAD. HE IS NOT CURRENTLY MANAGED BY A INSPECTOR FLOOR, BUT DOES REPORT A HX OF A-FIB IN THE PAST. HE ALSO USES HOME OXYGEN FOR HX OF COPD. WE WERE CONSULTED FOR MEDICAL MANAGEMENT. HE WAS STARTED ON DIGOXIN, A BETA IVAN, LASIX, AND A BLOOD THINNER. ON EXAMINATION TODAY, HE IS ALERT AND ORIENTED, LYING IN BED ON MORNING ROUNDS. HE CONTINUES TO HAVE A NON-PRODUCTIVE COUGH AND SHORTNESS OF BREATH AT TIMES. ON EXAMINATION, HEART IS REGULAR IN RATE AND RHYTHM. HR HAS BEEN AROUND 100 BPM. BILATERAL LUNGS ARE NOTED WITH RHONCHI THROUGHOUT. ABDOMEN IS ROUND, SOFT, AND NON-TENDER WITH NORMAL BOWEL SOUNDS NOTED IN ALL QUADRANTS. LEFT FOOT CHRONIC ULCER NOTED WITH ERYTHEMA. NO DRAINAGE NOTED. TRACE EDEMA NOTED TO LOWER EXTREMITIES. HIS VITALS THIS MORNING ARE: 97.9-100-25-96%-130/78. HE IS CURRENTLY UTILIZING OXYGEN VIA NASAL CANNULA AT 2 LITERS/MINUTE. LABS WERE OBTAINED. WBC 6.1, RBC 4.95, HGB 12.7, HCT 39.5, PLT COUNT 183, SODIUM 139, POTASSIUM 4.1, CHLORIDE 97, CARBON DIOXIDE 40.3, BUN 18, CREATININE 0.92, GLUCOSE 117, CALCIUM 8.7, BNP 819. A SPUTUM CULTURE IS PENDING. AN ECHO WAS OBTAINED ON 10/04/22. IT REVEALED AN EJECTION FRACTION OF 57%, MILD PULMONARY HTN, RVSP 38 mmHg. HE IS CURRENTLY RECEIVING LR AT [facility], ROCEPHIN 1G IV DAILY, SANTYL OINTMENT TO WOUND BID, VIBRAMYCIN 100MG PO BID, LASIX 20MG DAILY, LOVENOX 40MG SC DAILY, XOPENEX NEBS QID, ALBUTEROL INHALER Q6H PRN, DIGOXIN 0.25MG DAILY, METOPROLOL 50MG PO BID, PERCOCET 5/325MG Q4H PRN, AND CRESTOR 10MG PO HS. WE WILL CONTINUE WITH CURRENT PLAN OF CARE TODAY. OTHERWISE, WE WILL FOLLOW-UP WITH AM LABS AND CONTINUE TO MONITOR. WILL FOLLOW. TIME SPENT ON CLINICAL ASSESSMENT, REVIWING LABS AND IMAGING, DECISION MAKING, AND DOCUMENTATION GREATER THAN 45 MINUTES. - Past Medical Family Social History Past Med/Fam/Surg Hx: No changes since H&P Allergies: Allergies No Known Drug Allergies Allergy (Verified 01/16/22 13:44) - Review of Systems ROS: No change since H&P - Vital Signs and I&O's Vital Signs: Temperature 97.9 F Pulse Rate [Brachial] 124 Pulse Rate 105 Respiratory Rate 26 Blood Pressure [Left Arm] 156/94 Blood Pressure [Right Arm] 132/74 Blood Pressure 159/70 O2 Sat by Pulse Oximetry 93 Intake and Output: Intake & Output 10/04/22 10/05/22 10/06/22 10/07/22 11:59 11:59 11:59 11:59 Intake Total 1348 / 1348 1831 / 1831 2623 / 2623 2044 / 2044 Output Total 2350 / 2350 2375 / 2375 3150 / 3150 1500 / 1500 Balance -1002 / -1002 -544 / -544 -527 / -527 544 / 544 - Physical Exam Oriented: Normal Eyes: Normal Ear: Normal Nose: Normal Throat: Normal Respiratory: Generalized, Rhonchi Cardiovascular: Tachycardia, Irregular : Normal Auscultation: Bowel Sounds: Normal Palpation: Normal Tenderness: Normal Skin: Normal Musculoskeletal: Left, Leg, Foot (chronic ulcer noted with erythema, no drainage) Psychiatric: Normal Mood Description: Calm, Appropriate Speech Pattern: Clear, Appropriate - Laboratory and Diagnostics Result Diagrams: 10/07/22 04:00 10/07/22 04:00 Labs: 10/06/22 13:25 Sputum - Expectorated Sputum Sputum Culture - Preliminary 10/06/22 13:25 Sputum - Expectorated Sputum - Final Laboratory WBC 6.1 X10^3/uL (3.6-10.0) 10/07/22 04:00 RBC 4.95 X10^6/uL (4.7-6.0) 10/07/22 04:00 Hgb 12.7 g/dL (13.5-18.0) L 10/07/22 04:00 Hct 39.5 % (42.0-54.0) L 10/07/22 04:00 MCV 79.7 fL (80.0-100.0) L 10/07/22 04:00 MCH 25.6 pg (27.0-34.0) L 10/07/22 04:00 MCHC 32.2 g/dL (33.0-35.0) L 10/07/22 04:00 RDW 18.6 % (11.6-16.5) H 10/07/22 04:00 Plt Count 183 X10^3/uL (150.0-450.0) 10/07/22 04:00 MPV 8.2 fL (7.4-11.0) 10/07/22 04:00 Neut % (Auto) 73.2 % (42.0-75.0) 10/07/22 04:00 Lymph % (Auto) 13.6 % (21.0-51.0) L 10/07/22 04:00 Woodruff % (Auto) 11.4 % (0.0-13.0) 10/07/22 04:00 Eos % (Auto) 1.1 % (0.9-2.9) 10/07/22 04:00 Baso % (Auto) 0.7 % (0.2-1.0) 10/07/22 04:00 Neut # (Auto) 4.5 x10^3/uL (2.2-4.8) 10/07/22 04:00 Lymph # (Auto) 0.8 X10^3/uL (1.3-2.9) L 10/07/22 04:00 Woodruff # (Auto) 0.7 x10^3/uL (0.3-0.8) 10/07/22 04:00 Eos # (Auto) 0.1 x10^3/uL (0.0-0.2) 10/07/22 04:00 Baso # (Auto) 0.0 X10^3/uL (0.0-0.1) 10/07/22 04:00 Absolute Nucleated RBC 0.0 /100WBC 10/07/22 04:00 PT 14.0 SECONDS (11.8-14.3) 10/03/22 14:02 INR Target Range - 10/03/22 14:02 INR 1.11 (0.8-1.3) 10/03/22 14:02 APTT 36.4 SECONDS (22.9-36.5) 10/03/22 14:02 PTT Comment - 10/03/22 14:02 Sodium 139 mmol/L (136-145) 10/07/22 04:00 Corrected Sodium 139 mmol/L (136-145) 10/07/22 04:00 Potassium 4.1 mmol/L (3.5-5.1) 10/07/22 04:00 Chloride 97 mmol/L (98-107) L 10/07/22 04:00 Carbon Dioxide 40.3 mmol/L (21-32) H 10/07/22 04:00 BUN 18 mg/dL (7-18) 10/07/22 04:00 Creatinine 0.92 mg/dL (0.70-1.30) 10/07/22 04:00 Est GFR (MDRD) Af Amer > 60 (>60) 10/07/22 04:00 Est GFR (MDRD) Non-Af > 60 (>60) 10/07/22 04:00 Glucose 117 mg/dL (65-99) H 10/07/22 04:00 Calcium 8.7 mg/dL (8.5-10.1) 10/07/22 04:00 Corrected Calcium 9.5 mg/dL (8.5-10.1) 10/05/22 04:03 Total Bilirubin 0.80 mg/dL (0.2-1.0) 10/05/22 04:03 AST 24 Units/L (15-37) 10/05/22 04:03 ALT 24 Units/L (12-78) 10/05/22 04:03 Alkaline Phosphatase 96 Units/L (46-116) 10/05/22 04:03 Creatine Kinase 53 Units/L (39-308) 10/03/22 14:02 Troponin I High Sens 119.8 ng/L (4.0-60.0) H* 10/04/22 04:25 B-Natriuretic Peptide 819 pg/mL (0-79) H* 10/07/22 04:00 Total Protein 6.7 g/dL (6.4-8.2) 10/05/22 04:03 Albumin 2.9 g/dL (3.4-5.0) L 10/05/22 04:03 Globulin 3.8 g/dL (2.5-4.5) 10/05/22 04:03 Albumin/Globulin Ratio 0.8 Ratio (1.1-2.1) L 10/05/22 04:03 Digoxin 0.78 ng/mL (0.9-2) L 10/07/22 04:00 - Plan (1) Atrial fibrillation with rapid ventricular response Status: Acute Plan: SUPPLEMENTAL OXYGEN, LR AT [facility], ROCEPHIN 1G IV DAILY, SANTYL OINTMENT TO WOUND BID, VIBRAMYCIN 100MG PO BID, LASIX 20MG DAILY, LOVENOX 40MG SC DAILY, XOPENEX NEBS QID, ALBUTEROL INHALER Q6H PRN, DIGOXIN 0.25MG DAILY, METOPROLOL 50MG PO BID, PERCOCET 5/325MG Q4H PRN, AND CRESTOR 10MG PO HS. (2) CHF exacerbation Status: Acute Qualifiers: Heart failure type: unspecified Qualified Code(s): I50.9 - Heart failure, unspecified (3) Venous ulcer of lower extremity due to chronic peripheral venous hypertension Status: Acute (4) Acute bronchitis Status: Acute Qualifiers: Bronchitis organism: unspecified organism Qualified Code(s): J20.9 - Acute bronchitis, unspecified (5) Anemia Status: Acute Qualifiers: Anemia type: iron deficiency Iron deficiency anemia type: chronic blood loss Qualified Code(s): D50.0 - Iron deficiency anemia secondary to blood loss (chronic) (6) Venous insufficiency of both lower extremities Status: Chronic (7) COPD (chronic obstructive pulmonary disease) Status: Chronic Qualifiers: COPD type: unspecified COPD Qualified Code(s): J44.9 - Chronic obstructive pulmonary disease, unspecified (8) HTN (hypertension) Status: Chronic Qualifiers: Hypertension type: primary hypertension Qualified Code(s): I10 - Essential (primary) hypertension
--- NOTE | 2022-10-07 11:27 | RAD ---
HISTORYPNEUMONIA COPD, LUNG CA, PORTSTUDYCHEST, 1 VIEWCOMPARISONChest x-ray 10/05/2022FINDINGSThe heart is normal in size. There is mild central pulmonary vascular congestion. There is diffuse interstitial prominence throughout the lungs. No pneumothorax or large pleural effusion. No acute osseous abnormality.IMPRESSIONNo significant interval change with diffuse bilateral pulmonary densities that may represent pulmonary edema/CHF and/or pneumonia..Electronically signed by: Torres Cline (Oct 07, 2022 11:25:53)
[2022-10-07] MEDS: CRESTOR TAB 10 MG PO SCH (20:27)
[2022-10-07] MEDS: PERCOCET TAB 5/325 MG PO PRN (20:29)
[2022-10-07] MEDS ORDERED: LASIX IVP ONE (22:00)
[2022-10-07] MEDS ORDERED: LASIX ONE (22:03)
--- NOTE | 2022-10-08 00:58 | NOTE.SOAP ---
Soap Note Note for Day of Date of Exam: 10/07/22 Subjective Data Subjective Data: Patient with non- healing ulcer to dorsum left foot. Had EVONNE on left of 0.8 and most likely venous insufficiency . At attempt to perform venograms and IVUS had new onset of atrail fibrillation with SOB , uncontrolled tachycardia, hypetension and had elevated troponin but it was probaly due to the new test insensitivity and it actually went down almost immediately. Given diuretics beta- denisse and digoxin. Echo shows EF > 55 %. Now controlled rate with a-fib/ a-fliutter . Cleared for surgery. Has had elevated BNP and CXR consistent with CHF. Arterial duplex shows occluded left SFA with 2 vessels runoff. Objective Data Temperature: 97.8 F Pulse Rate: 104 Respiratory Rate: 26 Blood Pressure: 137/64 O2 Sat by Pulse Oximetry: 95 Objective Data: A& O x 3 . No chest pain. Vitals as listed . Some SOB, Increased pulmonary markings consistent with CHF. Assessment Assessment: Ulcer left foot , probably combination of venous iliac vein compression and left SFA occlusion. Cleared for procedure. Plan Plan: Will give Lasix tonight. Plan iliac vein studies and probable left iliac vein stenting. May need arterial intervention in the future .
[2022-10-08 05:04] LABS: BASOPHILS # (AUTO) 0.1 X10^3/uL (0.0-0.1); BASOPHILS % (AUTO) 1.1 % (0.2-1.0); EOSINOPHILS # (AUTO) 0.1 x10^3/uL (0.0-0.2); EOSINOPHILS % (AUTO) 1.3 % (0.9-2.9); HEMATOCRIT 39.9 % (42.0-54.0); HEMOGLOBIN 12.9 g/dL (13.5-18.0); LYMPHOCYTES # (AUTO) 1.1 X10^3/uL (1.3-2.9); LYMPHOCYTES % (AUTO) 15.8 % (21.0-51.0); MEAN CORPUSCULAR HEMOGLOBIN 25.5 pg (27.0-34.0); MEAN CORPUSCULAR HGB CONC 32.3 g/dL (33.0-35.0); MEAN PLATELET VOLUME 8.1 fL (7.4-11.0); MONOCYTES # (AUTO) 0.8 x10^3/uL (0.3-0.8); MONOCYTES % (AUTO) 12.1 % (0.0-13.0); NEUTROPHILS # (AUTO) 4.7 x10^3/uL (2.2-4.8); NEUTROPHILS % (AUTO) 69.7 % (42.0-75.0); RED BLOOD COUNT 5.05 X10^6/uL (4.7-6.0); RED CELL DISTRIBUTION WIDTH 18.3 % (11.6-16.5); WHITE BLOOD COUNT 6.7 X10^3/uL (3.6-10.0)
[2022-10-08 05:10] LABS: ALANINE AMINOTRANSFERASE 29 Units/L (12-78); ALKALINE PHOSPHATASE 102 Units/L (46-116); ASPARTATE AMINO TRANSFERASE 24 Units/L (15-37); BLOOD UREA NITROGEN 16 mg/dL (7-18); CARBON DIOXIDE 43.7 mmol/L (21-32); CHLORIDE 97 mmol/L (98-107); COR CA(FOR HYPOALB) 9.8 mg/dL (8.5-10.1); CREATININE 0.95 mg/dL (0.70-1.30); SODIUM 139 mmol/L (136-145); TOTAL PROTEIN 7.1 g/dL (6.4-8.2); eGFR NON BLACK RACES > 60 (>60)
[2022-10-08] MEDS: XOPENEX 1.25 MG/3 ML NEBULE NEB SCH ×5 (07:58→20:22)
[2022-10-08] MEDS: LR 1,000 ML IV 1,000 ML IV SCH ×2 (08:16→20:56)
--- NOTE | 2022-10-08 08:33 | RAD ---
HISTORYSOBSTUDYCHEST, 1 [id number]/27/2023.TECHNIQUEPA or AP view of the chestFINDINGSCardiac and mediastinal contours are within normal limits. There are bilateral mid to lower lung airspace and interstitial opacities appear similar to prior. Cannot exclude small pleural effusions. No pneumothorax.IMPRESSIONNo significant change compared to prior radiograph.Electronically signed by: Tony Pisano (Oct 08, 2022 08:23:30)
[2022-10-08] MEDS ORDERED: K-DUR TAB 20 MEQ PO ONE (08:36)
[2022-10-08] MEDS: LASIX PO SCH ×2 (08:42→23:19)
[2022-10-08] MEDS ORDERED: LASIX IVP ONE (09:00)
[2022-10-08] MEDS: LOPRESSOR TAB 50 MG PO SCH ×2 (09:03→20:57)
[2022-10-08] MEDS: LANOXIN PO SCH (09:04)
[2022-10-08] MEDS: VIBRAMYCIN PO SCH (09:05)
[2022-10-08] MEDS: PERCOCET TAB 5/325 MG PO PRN ×2 (09:05→22:39)
[2022-10-08] MEDS: LOVENOX INJ 40 MG SYR SC SCH (09:05)
[2022-10-08] MEDS: ROCEPHIN VIAL 1 GRAM 1 G in NS 100 ML IV 100 ML IV SCH (09:06)
[2022-10-08] MEDS: SANTYL EXT SCH (09:07)
[2022-10-08] MEDS ORDERED: CONSULT PHARMACY - ANTIBIOTIC XX SCH (10:00)
[2022-10-08] MEDS: LEVAQUIN PREMIX IV 500 MG 500 MG/100 ML BAG IV SCH (11:48)
--- NOTE | 2022-10-08 13:24 | EKG ---
Test Reason : SOB Blood Pressure : */* mmHG Vent. Rate : 110 BPM Atrial Rate : 286 BPM P-R Int : * ms QRS Dur : 80 ms QT Int : 292 ms P-R-T Axes : 90 13 47 degrees QTc Int : 395 ms Atrial flutter with variable AV block Nonspecific ST abnormality Abnormal ECG When compared with ECG of 03-OCT-2022 14:47, No significant change was found Confirmed by Guanaco Diaz ([id number]) on 10/09/2022 10:35:46 AM Referred By: Confirmed By: Guanaco Diaz
[2022-10-08] MEDS: ZESTRIL TAB 5 MG PO SCH (13:29)
[2022-10-08] MEDS: PULMICORT NEB TX 0.5 MG NEB SCH ×2 (13:50→20:22)
--- NOTE | 2022-10-08 15:59 | NOTE.SOAP ---
Soap Note Note for Day of Date of Exam: 10/08/22 Subjective Data Subjective Data: Patient had been cleared for surgery and was scheduled for b/l iliac venograms, b/l iliac vein intravascular US ( IVUS) and probable stenting of the left iliac vein. Were planning arterial atherectomy and balloon angioplasty of left leg complete occlusion at another time. A-fib has remained but did have a controlled rate. Surgery cancelled due to increasing shortness of breath. BNP had risen > 1200 despite treatment. Objective Data Temperature: 98.0 F Pulse Rate: 102 Respiratory Rate: 21 Blood Pressure: 171/89 O2 Sat by Pulse Oximetry: 96 Objective Data: Patient anxious and mildly dyspneic at rest. Superficial ulcers to left foot stable. Assessment Assessment: Non- healing ulcer left foot, probably both venous and arterial in origin. Atrial fibrillation controlled , but still with clinical congestive heart failure . Plan Plan: Continue therapeutic Lovenox. Internal medicine working on his CHF. That need to be improved before we can take him to the OR to intervene.
[2022-10-08] MEDS: ROBITUSSIN DM PO SCH ×2 (16:46→20:57)
[2022-10-08] MEDS: CRESTOR TAB 10 MG PO SCH (20:57)
[2022-10-09 02:22] LABS: EOSINOPHILS % (AUTO) 0.7 % (0.9-2.9); LYMPHOCYTES % (AUTO) 13.3 % (21.0-51.0)
[2022-10-09 02:26] LABS: BASOPHILS # (AUTO) 0.1 X10^3/uL (0.0-0.1); BASOPHILS % (AUTO) 0.7 % (0.2-1.0); EOSINOPHILS # (AUTO) 0.1 x10^3/uL (0.0-0.2); HEMATOCRIT 39.5 % (42.0-54.0); HEMOGLOBIN 12.9 g/dL (13.5-18.0); MEAN CORPUSCULAR HEMOGLOBIN 25.7 pg (27.0-34.0); MEAN CORPUSCULAR HGB CONC 32.7 g/dL (33.0-35.0); MEAN CORPUSCULAR VOLUME 78.8 fL (80.0-100.0); MEAN PLATELET VOLUME 7.6 fL (7.4-11.0); MONOCYTES # (AUTO) 0.9 x10^3/uL (0.3-0.8); MONOCYTES % (AUTO) 12.1 % (0.0-13.0); NEUTROPHILS # (AUTO) 5.7 x10^3/uL (2.2-4.8); NEUTROPHILS % (AUTO) 73.2 % (42.0-75.0); RED BLOOD COUNT 5.01 X10^6/uL (4.7-6.0); RED CELL DISTRIBUTION WIDTH 18.2 % (11.6-16.5); WHITE BLOOD COUNT 7.8 X10^3/uL (3.6-10.0)
[2022-10-09 02:34] LABS: ALANINE AMINOTRANSFERASE 26 Units/L (12-78); ALBUMIN 2.8 g/dL (3.4-5.0); ALKALINE PHOSPHATASE 97 Units/L (46-116); ASPARTATE AMINO TRANSFERASE 24 Units/L (15-37); BLOOD UREA NITROGEN 16 mg/dL (7-18); CALCIUM 9.1 mg/dL (8.5-10.1); CARBON DIOXIDE 42.2 mmol/L (21-32); CHLORIDE 95 mmol/L (98-107); COR CA(FOR HYPOALB) 10.1 mg/dL (8.5-10.1); CREATININE 1.05 mg/dL (0.70-1.30); SODIUM 135 mmol/L (136-145); TOTAL PROTEIN 6.7 g/dL (6.4-8.2); eGFR NON BLACK RACES > 60 (>60)
[2022-10-09] MEDS: LASIX PO SCH ×2 (06:03→17:49)
--- NOTE | 2022-10-09 07:09 | RAD ---
HISTORYShortness of breathSTUDYChest AP [id number]/28/2023FINDINGSHear t is enlarged. No definite congestive heart failure is identified. Right basilar lung infiltrate is unchanged. Left perihilar midlung infiltrate unchanged. No pleural effusions are identified. Bony thorax is unremarkable.IMPRESSIONNo change cardiomegaly without definite congestive heart failureNo change right basilar, left perihilar infiltrateElectronically signed by: GABRIELLA MENENDEZ (Oct 09, 2022 07:08:24)
[2022-10-09 08:29] VITALS: BMI 33.0
[2022-10-09] MEDS: LANOXIN PO SCH (08:32)
[2022-10-09] MEDS: LR 1,000 ML IV 1,000 ML IV SCH (08:33)
[2022-10-09] MEDS: ROBITUSSIN DM PO SCH ×4 (08:33→20:13)
[2022-10-09] MEDS: LOVENOX INJ 40 MG SYR SC SCH (08:33)
[2022-10-09] MEDS: ZESTRIL TAB 5 MG PO SCH (08:33)
[2022-10-09] MEDS: LEVAQUIN PREMIX IV 500 MG 500 MG/100 ML BAG IV SCH (08:33)
[2022-10-09] MEDS: XOPENEX 1.25 MG/3 ML NEBULE NEB SCH ×4 (08:33→20:36)
[2022-10-09] MEDS: PULMICORT NEB TX 0.5 MG NEB SCH ×2 (08:33→20:36)
[2022-10-09] MEDS: LOPRESSOR TAB 50 MG PO SCH ×2 (08:34→20:13)
[2022-10-09] MEDS: CARDIZEM CD 120 MG 24-HR PO SCH (09:17)
--- NOTE | 2022-10-09 19:44 | NOTE.SOAP ---
Soap Note Note for Day of Date of Exam: 10/09/22 Subjective Data Subjective Data: Patient seen by cardiology today and Dr. Dickson added po Cardiazem .No chest pain . BP controlled and still with a-fib/a flutter aand controlled rate of 78- 90. Lovenox stopped and placed on Eliquis. Surgery delayed for now and is to have Lexiscan stress test next week. If stress test negative will finally intervene on the left iliac vein compression and left popliteal occlusion Objective Data Pulse Rate: 78 Respiratory Rate: 17 Blood Pressure: 113/71 O2 Sat by Pulse Oximetry: 93 Objective Data: Ulcers left foot unchanged . HgB=12.9, WBC=7.8 Assessment Assessment: see above Plan Plan: Will discuss discharge tomorrow with cardiology. Will schedule stress test as outpatient and if negative will plan left iloiav vein and left arterial interventions in the near future .
[2022-10-09] MEDS: CRESTOR TAB 10 MG PO SCH (20:13)
[2022-10-09] MEDS: ELIQUIS PO SCH (20:13)
[2022-10-09] MEDS: PERCOCET TAB 5/325 MG PO PRN (20:15)
[2022-10-10 05:00] LABS: BASOPHILS % (AUTO) 0.7 % (0.2-1.0); EOSINOPHILS # (AUTO) 0.1 x10^3/uL (0.0-0.2); EOSINOPHILS % (AUTO) 1.3 % (0.9-2.9); HEMOGLOBIN 13.1 g/dL (13.5-18.0); LYMPHOCYTES # (AUTO) 1.4 X10^3/uL (1.3-2.9); LYMPHOCYTES % (AUTO) 20.4 % (21.0-51.0); MEAN CORPUSCULAR HEMOGLOBIN 25.6 pg (27.0-34.0); MEAN CORPUSCULAR HGB CONC 32.8 g/dL (33.0-35.0); MEAN PLATELET VOLUME 8.3 fL (7.4-11.0); MONOCYTES # (AUTO) 0.7 x10^3/uL (0.3-0.8); MONOCYTES % (AUTO) 10.4 % (0.0-13.0); NEUTROPHILS # (AUTO) 4.6 x10^3/uL (2.2-4.8); NEUTROPHILS % (AUTO) 67.2 % (42.0-75.0); RED BLOOD COUNT 5.12 X10^6/uL (4.7-6.0); RED CELL DISTRIBUTION WIDTH 18.1 % (11.6-16.5); WHITE BLOOD COUNT 6.9 X10^3/uL (3.6-10.0)
[2022-10-10 05:08] LABS: ALANINE AMINOTRANSFERASE 27 Units/L (12-78); ALBUMIN 2.8 g/dL (3.4-5.0); ALKALINE PHOSPHATASE 92 Units/L (46-116); ASPARTATE AMINO TRANSFERASE 24 Units/L (15-37); BLOOD UREA NITROGEN 20 mg/dL (7-18); CALCIUM 9.1 mg/dL (8.5-10.1); CARBON DIOXIDE 38.5 mmol/L (21-32); CHLORIDE 94 mmol/L (98-107); COR CA(FOR HYPOALB) 10.1 mg/dL (8.5-10.1); CREATININE 1.02 mg/dL (0.70-1.30); SODIUM 136 mmol/L (136-145); TOTAL PROTEIN 6.6 g/dL (6.4-8.2); eGFR NON BLACK RACES > 60 (>60)
[2022-10-10] MEDS: LR 1,000 ML IV 1,000 ML IV SCH ×2 (05:37→12:44)
[2022-10-10] MEDS: LASIX PO SCH (06:03)
--- NOTE | 2022-10-10 07:51 | RAD ---
HISTORYShortness of breathSTUDYChest AP [id number]/29/2023FINDINGSThe heart remains enlarged. No definite congestive heart failure is noted. Right basilar and left perihilar lung infiltrates are unchanged. There is subsegmental atelectasis in the left costophrenic angle. No pleural effusions are identified. Bony thorax is unremarkable.IMPRESSIONNo significant change when compared to the prior examinationElectronically signed by: GABRIELLA MENENDEZ (Oct 10, 2022 07:50:43)
[2022-10-10] MEDS: CARDIZEM CD 120 MG 24-HR PO SCH (08:15)
[2022-10-10] MEDS: ROBITUSSIN DM PO SCH ×2 (08:15→14:51)
[2022-10-10] MEDS: LEVAQUIN PREMIX IV 500 MG 500 MG/100 ML BAG IV SCH (08:16)
[2022-10-10] MEDS: ZESTRIL TAB 5 MG PO SCH (08:16)
[2022-10-10] MEDS: ELIQUIS PO SCH (08:16)
[2022-10-10] MEDS: LOPRESSOR TAB 50 MG PO SCH (08:16)
[2022-10-10] MEDS: PULMICORT NEB TX 0.5 MG NEB SCH (08:24)
[2022-10-10] MEDS: XOPENEX 1.25 MG/3 ML NEBULE NEB SCH (08:24)
[2022-10-10 16:02] VITALS: BP 111/55
--- NOTE | 2022-10-10 16:48 | W.DIS.FURT ---
Summary of Discharge Discharge Summary of Date Date of Exam: 10/10/22 Admission Date Date of Admission: 10/01/22 Admission Diagnosis Patient Problems (Updated 10/07/22 @ 10:28 by Chance Lopez) COPD (chronic obstructive pulmonary disease) (Chronic) J44.9 HTN (hypertension) (Chronic) I10 Acute bronchitis (Acute) J20.9 Anemia (Acute) D64.9 Atrial fibrillation with rapid ventricular response (Acute) I48.91 CHF exacerbation (Acute) I50.9 Venous ulcer of lower extremity due to chronic peripheral venous hypertension (Acute) I87.319 Venous insufficiency of both lower extremities (Chronic) I87.2 Hospital Course: This 71 year old male was seen in the office on October 01 with complaints of pain in the left leg and non-healing wounds to the dorsum the left foot and left medial ankle for many months He was admitted at that time for evaluation and IV antibiotics . 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 Ankle brachial indices from a previous study were near normal and probably in error . Admitted October 01 and on October 03 taken to the operating room for iliac venograms and intravascular ultrasound of the veins with possible stenting of the left common iliac vein . In the OR he became short of breath and could not lie down flat and his heart rate went to 147 which was consistent with atrial fibrillation and was hypertensive. The case was canceled and he was taken to the ICU. He had elevated BNP well as elevated troponin. The troponin was 147 however, that did not change 6 hours later . This is not very consistent with myocardial ischemia. He was seen in consultation by Chance Lopez and teresa garibay on digoxin and beta denisse. Continued to have shortness of breath with elevated BNP and chest Xrays consistent with congestive heart failure. He was also treated with IV lasix .He did improve and we were planning on taking him to the operating suite October 08 but he became more short of breath. That surgery was also cancelled and he was seen in consultation by Dr Lin , Cardiology. Dr. Lin started him on a calcium channel denisse and discontinued the digoxin . He had been on therapeutic Lovenox in anticipation of the surgery however that has been canceled and he was placed on Eliquis 5 mg BID. Shortness of breath is much improved. He was discharged today and plans to follow up with Doctor Lin next week and plans for a Lexiscan stress test. This will need to be accomplished before he can receive any type of surgical intervention. He will follow up with Dr. Edward after his cardiac evaluation is complete. Vital Signs: Vital Signs (72 hours) 10/08/22 00:50 10/08/22 15:49 10/09/22 19:43 Temperature 97.8 F 98.0 F Pulse Rate 104 H 102 H 78 Respiratory Rate 26 H 21 17 Blood Pressure 137/64 171/89 113/71 O2 Sat by Pulse Oximetry 95 96 93 L Oxygen Delivery Method Oxygen Flow Rate FIO2% 10/07/22 17:00 10/07/22 18:00 10/07/22 19:00 Temperature Pulse Rate 95 H 98 H 101 H Respiratory Rate 20 22 23 Blood Pressure 154/79 154/81 150/70 O2 Sat by Pulse Oximetry 96 97 97 Oxygen Delivery Method Nasal Cannula Nasal Cannula Nasal Cannula Oxygen Flow Rate 2 2 2 FIO2% 10/07/22 19:00 10/07/22 20:00 10/07/22 19:50 Temperature 97.9 F Pulse Rate 108 H Respiratory Rate 24 Blood Pressure 156/75 O2 Sat by Pulse Oximetry 96 Oxygen Delivery Method Nasal Cannula Nasal Cannula Nasal Cannula Oxygen Flow Rate 2 2 3 FIO2% 32 10/07/22 19:50 10/07/22 20:29 10/07/22 21:00 Temperature Pulse Rate 101 H 103 H Respiratory Rate 24 24 Blood Pressure 163/72 O2 Sat by Pulse Oximetry 97 97 Oxygen Delivery Method Nasal Cannula Oxygen Flow Rate 2 FIO2% 10/07/22 22:00 10/07/22 21:29 10/07/22 23:00 Temperature Pulse Rate 95 H 95 H Respiratory Rate 26 H 22 24 Blood Pressure 160/74 142/68 O2 Sat by Pulse Oximetry 93 L 95 Oxygen Delivery Method Nasal Cannula Nasal Cannula Oxygen Flow Rate 2 2 FIO2% 10/08/22 00:00 10/08/22 01:00 10/08/22 02:00 Temperature 97.8 F Pulse Rate 104 H 71 103 H Respiratory Rate 26 H 21 22 Blood Pressure 137/64 114/56 135/69 O2 Sat by Pulse Oximetry 95 95 95 Oxygen Delivery Method Nasal Cannula Nasal Cannula Nasal Cannula Oxygen Flow Rate 2 2 2 FIO2% 10/08/22 03:00 10/08/22 04:00 10/08/22 05:00 Temperature 97.8 F Pulse Rate 100 H 103 H 106 H Respiratory Rate 16 18 24 Blood Pressure 124/62 137/81 133/75 O2 Sat by Pulse Oximetry 97 96 93 L Oxygen Delivery Method Nasal Cannula Nasal Cannula Nasal Cannula Oxygen Flow Rate 2 2 2 FIO2% 10/08/22 06:00 10/08/22 07:58 10/08/22 07:58 Temperature Pulse Rate 96 H 83 Respiratory Rate 20 Blood Pressure 160/70 O2 Sat by Pulse Oximetry 99 95 Oxygen Delivery Method Nasal Cannula Nasal Cannula Oxygen Flow Rate 2 2 FIO2% 28 10/08/22 09:04 10/08/22 07:00 10/08/22 07:00 Temperature 98.2 F Pulse Rate 117 H 103 H Respiratory Rate 28 H Blood Pressure 163/86 O2 Sat by Pulse Oximetry 97 Oxygen Delivery Method Oxygen Flow Rate FIO2% 10/08/22 08:00 10/08/22 08:01 10/08/22 08:01 Temperature Pulse Rate 106 H 107 H Respiratory Rate 28 H 24 Blood Pressure 164/89 O2 Sat by Pulse Oximetry 90 L 92 L Oxygen Delivery Method Oxygen Flow Rate FIO2% 10/08/22 09:00 10/08/22 09:01 10/08/22 09:01 Temperature Pulse Rate 116 H 115 H Respiratory Rate 28 H 24 Blood Pressure 146/55 O2 Sat by Pulse Oximetry 90 L 90 L Oxygen Delivery Method Oxygen Flow Rate FIO2% 10/08/22 10:00 10/08/22 10:01 10/08/22 10:01 Temperature Pulse Rate 106 H 106 H Respiratory Rate 23 24 Blood Pressure 144/72 O2 Sat by Pulse Oximetry 92 L 93 L Oxygen Delivery Method Oxygen Flow Rate FIO2% 10/08/22 11:00 10/08/22 11:00 10/08/22 12:34 Temperature Pulse Rate 95 H 98 H Respiratory Rate 21 Blood Pressure 135/84 O2 Sat by Pulse Oximetry 96 96 Oxygen Delivery Method Oxygen Flow Rate FIO2% 10/08/22 11:15 10/08/22 11:30 10/08/22 11:45 Temperature Pulse Rate 102 H 96 H 99 H Respiratory Rate 23 29 H 28 H Blood Pressure O2 Sat by Pulse Oximetry 89 L 91 L 91 L Oxygen Delivery Method Oxygen Flow Rate FIO2% 10/08/22 12:00 10/08/22 12:15 10/08/22 12:30 Temperature 98.0 F Pulse Rate 102 H 116 H 105 H Respiratory Rate 29 H 28 H 28 H Blood Pressure O2 Sat by Pulse Oximetry 92 L 91 L 90 L Oxygen Delivery Method Oxygen Flow Rate FIO2% 10/08/22 12:45 10/08/22 13:00 10/08/22 13:14 Temperature Pulse Rate 112 H 100 H 105 H Respiratory Rate 55 H 22 21 Blood Pressure O2 Sat by Pulse Oximetry 88 L 93 L 94 L Oxygen Delivery Method Oxygen Flow Rate FIO2% 10/08/22 13:14 10/08/22 13:15 10/08/22 13:30 Temperature Pulse Rate 103 H 102 H Respiratory Rate 23 22 Blood Pressure 163/73 O2 Sat by Pulse Oximetry 94 L 92 L Oxygen Delivery Method Oxygen Flow Rate FIO2% 10/08/22 13:45 10/08/22 14:00 10/08/22 14:01 Temperature Pulse Rate 98 H 102 H 103 H Respiratory Rate 17 21 21 Blood Pressure O2 Sat by Pulse Oximetry 97 96 96 Oxygen Delivery Method Oxygen Flow Rate FIO2% 10/08/22 14:01 10/08/22 07:00 10/08/22 15:00 Temperature Pulse Rate 102 H Respiratory Rate 21 Blood Pressure 171/89 O2 Sat by Pulse Oximetry 96 Oxygen Delivery Method Nasal Cannula Oxygen Flow Rate 2 FIO2% 10/08/22 14:15 10/08/22 14:30 10/08/22 14:45 Temperature Pulse Rate 106 H 104 H 103 H Respiratory Rate 19 23 27 H Blood Pressure O2 Sat by Pulse Oximetry 96 96 95 Oxygen Delivery Method Oxygen Flow Rate FIO2% 10/08/22 15:00 10/08/22 15:01 10/08/22 15:01 Temperature Pulse Rate 96 H 96 H Respiratory Rate 23 20 Blood Pressure 169/88 O2 Sat by Pulse Oximetry 98 97 Oxygen Delivery Method Oxygen Flow Rate FIO2% 10/08/22 15:15 10/08/22 15:30 10/08/22 15:45 Temperature Pulse Rate 73 74 74 Respiratory Rate 17 16 16 Blood Pressure O2 Sat by Pulse Oximetry 98 95 94 L Oxygen Delivery Method Oxygen Flow Rate FIO2% 10/08/22 16:00 10/08/22 16:01 10/08/22 16:01 Temperature 97.9 F Pulse Rate 105 H 109 H Respiratory Rate 28 H 27 H Blood Pressure 167/74 O2 Sat by Pulse Oximetry 92 L 94 L Oxygen Delivery Method Oxygen Flow Rate FIO2% 10/08/22 16:15 10/08/22 16:30 10/08/22 16:45 Temperature Pulse Rate 112 H 108 H 107 H Respiratory Rate 39 H 31 H 27 H Blood Pressure O2 Sat by Pulse Oximetry 90 L 92 L 90 L Oxygen Delivery Method Oxygen Flow Rate FIO2% 10/08/22 17:00 10/08/22 17:01 10/08/22 17:01 Temperature Pulse Rate 101 H 104 H Respiratory Rate 24 39 H Blood Pressure 165/74 O2 Sat by Pulse Oximetry 94 L 92 L Oxygen Delivery Method Oxygen Flow Rate FIO2% 10/08/22 17:15 10/08/22 17:30 10/08/22 17:45 Temperature Pulse Rate 116 H 108 H 107 H Respiratory Rate 31 H 27 H 25 H Blood Pressure O2 Sat by Pulse Oximetry 89 L 89 L 90 L Oxygen Delivery Method Oxygen Flow Rate FIO2% 10/08/22 18:00 10/08/22 18:01 10/08/22 18:01 Temperature Pulse Rate 102 H 105 H Respiratory Rate 24 22 Blood Pressure 159/69 O2 Sat by Pulse Oximetry 90 L 91 L Oxygen Delivery Method Oxygen Flow Rate FIO2% 10/08/22 18:15 10/08/22 18:30 10/08/22 19:00 Temperature Pulse Rate 106 H 115 H 107 H Respiratory Rate 24 26 H 28 H Blood Pressure 153/71 O2 Sat by Pulse Oximetry 91 L 92 L 92 L Oxygen Delivery Method Nasal Cannula Oxygen Flow Rate 3 FIO2% 10/08/22 19:00 10/08/22 20:00 10/08/22 21:00 Temperature 98.0 F Pulse Rate 98 H 120 H Respiratory Rate 22 26 H Blood Pressure 152/65 143/69 O2 Sat by Pulse Oximetry 95 92 L Oxygen Delivery Method Nasal Cannula Nasal Cannula Nasal Cannula Oxygen Flow Rate 3 3 3 FIO2% 10/08/22 22:00 10/08/22 22:39 10/08/22 20:22 Temperature Pulse Rate 82 Respiratory Rate 19 24 Blood Pressure 159/68 O2 Sat by Pulse Oximetry 92 L Oxygen Delivery Method Nasal Cannula Nasal Cannula Oxygen Flow Rate 3 3 FIO2% 32 10/08/22 20:22 10/08/22 23:00 10/09/22 00:00 Temperature 97.9 F Pulse Rate 81 110 H 72 Respiratory Rate 28 H 16 Blood Pressure 168/75 161/70 O2 Sat by Pulse Oximetry 93 L 90 L 98 Oxygen Delivery Method Nasal Cannula Nasal Cannula Oxygen Flow Rate 3 3 FIO2% 10/09/22 01:00 10/09/22 02:00 10/08/22 23:39 Temperature Pulse Rate 74 73 Respiratory Rate 15 16 22 Blood Pressure 108/56 114/73 O2 Sat by Pulse Oximetry 92 L 93 L Oxygen Delivery Method Nasal Cannula Nasal Cannula Oxygen Flow Rate 3 3 FIO2% 10/09/22 03:00 10/09/22 04:00 10/09/22 05:00 Temperature 97.9 F Pulse Rate 74 74 76 Respiratory Rate 16 16 16 Blood Pressure 113/56 124/60 145/64 O2 Sat by Pulse Oximetry 93 L 93 L 92 L Oxygen Delivery Method Nasal Cannula Nasal Cannula Nasal Cannula Oxygen Flow Rate 3 3 3 FIO2% 10/09/22 06:00 10/09/22 07:00 10/08/22 22:30 Temperature Pulse Rate 84 105 H Respiratory Rate 0 L 31 H Blood Pressure 159/64 O2 Sat by Pulse Oximetry 91 L 92 L Oxygen Delivery Method Nasal Cannula Nasal Cannula Oxygen Flow Rate 3 3 FIO2% 10/08/22 22:45 10/08/22 23:00 10/08/22 23:01 Temperature Pulse Rate 111 H 107 H 112 H Respiratory Rate 27 H 27 H 29 H Blood Pressure O2 Sat by Pulse Oximetry 90 L 88 L 88 L Oxygen Delivery Method Oxygen Flow Rate FIO2% 10/08/22 23:01 10/08/22 23:15 10/08/22 23:30 Temperature Pulse Rate 115 H 107 H Respiratory Rate 32 H 23 Blood Pressure 168/75 O2 Sat by Pulse Oximetry 90 L 93 L Oxygen Delivery Method Oxygen Flow Rate FIO2% 10/08/22 23:45 10/09/22 00:00 10/09/22 00:01 Temperature Pulse Rate 99 H 80 72 Respiratory Rate 20 16 15 Blood Pressure O2 Sat by Pulse Oximetry 93 L 96 100 Oxygen Delivery Method Oxygen Flow Rate FIO2% 10/09/22 00:01 10/09/22 00:15 10/09/22 00:30 Temperature Pulse Rate 72 74 Respiratory Rate 15 15 Blood Pressure 161/70 O2 Sat by Pulse Oximetry 99 94 L Oxygen Delivery Method Oxygen Flow Rate FIO2% 10/09/22 00:45 10/09/22 01:00 10/09/22 01:01 Temperature Pulse Rate 75 75 Respiratory Rate 15 15 Blood Pressure 108/56 O2 Sat by Pulse Oximetry 92 L 91 L Oxygen Delivery Method Oxygen Flow Rate FIO2% 10/09/22 01:01 10/09/22 01:15 10/09/22 01:30 Temperature Pulse Rate 74 74 74 Respiratory Rate 15 16 14 Blood Pressure O2 Sat by Pulse Oximetry 92 L 92 L 92 L Oxygen Delivery Method Oxygen Flow Rate FIO2% 10/09/22 01:45 10/09/22 02:00 10/09/22 02:00 Temperature Pulse Rate 74 74 Respiratory Rate 15 20 Blood Pressure 114/73 O2 Sat by Pulse Oximetry 92 L 91 L Oxygen Delivery Method Oxygen Flow Rate FIO2% 10/09/22 02:15 10/09/22 02:30 10/09/22 02:45 Temperature Pulse Rate 73 72 73 Respiratory Rate 16 15 15 Blood Pressure O2 Sat by Pulse Oximetry 93 L 94 L 92 L Oxygen Delivery Method Oxygen Flow Rate FIO2% 10/09/22 03:00 10/09/22 03:00 10/09/22 03:15 Temperature Pulse Rate 74 73 Respiratory Rate 15 14 Blood Pressure 113/56 O2 Sat by Pulse Oximetry 91 L 92 L Oxygen Delivery Method Oxygen Flow Rate FIO2% 10/09/22 03:30 10/09/22 03:45 10/09/22 04:00 Temperature Pulse Rate 72 93 H Respiratory Rate 17 16 Blood Pressure 124/60 O2 Sat by Pulse Oximetry 91 L 94 L Oxygen Delivery Method Oxygen Flow Rate FIO2% 10/09/22 04:00 10/09/22 04:15 10/09/22 04:30 Temperature Pulse Rate 76 74 74 Respiratory Rate 15 14 14 Blood Pressure O2 Sat by Pulse Oximetry 90 L 93 L 93 L Oxygen Delivery Method Oxygen Flow Rate FIO2% 10/09/22 04:45 10/09/22 05:00 10/09/22 05:01 Temperature Pulse Rate 74 84 Respiratory Rate 15 19 Blood Pressure 145/64 O2 Sat by Pulse Oximetry 92 L 88 L Oxygen Delivery Method Oxygen Flow Rate FIO2% 10/09/22 05:01 10/09/22 05:15 10/09/22 05:30 Temperature Pulse Rate 76 76 85 Respiratory Rate 17 17 19 Blood Pressure O2 Sat by Pulse Oximetry 91 L 90 L 91 L Oxygen Delivery Method Oxygen Flow Rate FIO2% 10/09/22 05:45 10/09/22 06:00 10/09/22 06:01 Temperature Pulse Rate 83 85 80 Respiratory Rate 19 21 20 Blood Pressure O2 Sat by Pulse Oximetry 93 L 90 L 93 L Oxygen Delivery Method Oxygen Flow Rate FIO2% 10/09/22 06:01 10/09/22 06:15 10/09/22 06:30 Temperature Pulse Rate 96 H 93 H Respiratory Rate 23 31 H Blood Pressure 159/64 O2 Sat by Pulse Oximetry 91 L 93 L Oxygen Delivery Method Oxygen Flow Rate FIO2% 10/09/22 06:45 10/09/22 07:00 10/09/22 07:00 Temperature Pulse Rate 98 H 97 H Respiratory Rate 22 20 Blood Pressure 142/79 O2 Sat by Pulse Oximetry 92 L 92 L Oxygen Delivery Method Oxygen Flow Rate FIO2% 10/09/22 07:15 10/09/22 07:30 10/09/22 07:45 Temperature 97.8 F Pulse Rate 99 H 107 H 106 H Respiratory Rate 21 20 31 H Blood Pressure O2 Sat by Pulse Oximetry 93 L 92 L 90 L Oxygen Delivery Method Oxygen Flow Rate FIO2% 10/09/22 08:00 10/09/22 08:32 10/09/22 08:33 Temperature Pulse Rate 108 H 115 H Respiratory Rate 52 H Blood Pressure O2 Sat by Pulse Oximetry 90 L Oxygen Delivery Method Nasal Cannula Oxygen Flow Rate 3 FIO2% 32 10/09/22 08:33 10/09/22 08:15 10/09/22 08:18 Temperature Pulse Rate 118 H 104 H 102 H Respiratory Rate 35 H 23 Blood Pressure O2 Sat by Pulse Oximetry 93 L 91 L 92 L Oxygen Delivery Method Oxygen Flow Rate FIO2% 10/09/22 08:18 10/09/22 08:30 10/09/22 08:45 Temperature Pulse Rate 104 H 110 H Respiratory Rate 40 H 18 Blood Pressure 137/83 O2 Sat by Pulse Oximetry 89 L 92 L Oxygen Delivery Method Oxygen Flow Rate FIO2% 10/09/22 09:00 10/09/22 09:00 10/09/22 09:15 Temperature Pulse Rate 117 H 112 H Respiratory Rate 19 23 Blood Pressure 121/60 O2 Sat by Pulse Oximetry 88 L 90 L Oxygen Delivery Method Oxygen Flow Rate FIO2% 10/09/22 09:30 10/09/22 09:45 10/09/22 10:00 Temperature Pulse Rate 100 H 104 H Respiratory Rate 18 16 Blood Pressure 106/51 O2 Sat by Pulse Oximetry 92 L 93 L Oxygen Delivery Method Oxygen Flow Rate FIO2% 10/09/22 10:00 10/09/22 10:15 10/09/22 10:30 Temperature Pulse Rate 97 H 95 H 78 Respiratory Rate 18 17 17 Blood Pressure O2 Sat by Pulse Oximetry 89 L 92 L 94 L Oxygen Delivery Method Oxygen Flow Rate FIO2% 10/09/22 10:45 10/09/22 11:00 10/09/22 11:00 Temperature Pulse Rate 86 80 Respiratory Rate 30 H 23 Blood Pressure 124/66 O2 Sat by Pulse Oximetry 91 L 88 L Oxygen Delivery Method Oxygen Flow Rate FIO2% 10/09/22 11:15 10/09/22 11:30 10/09/22 11:45 Temperature Pulse Rate 75 74 74 Respiratory Rate 18 18 19 Blood Pressure O2 Sat by Pulse Oximetry 95 93 L 93 L Oxygen Delivery Method Oxygen Flow Rate FIO2% 10/09/22 12:00 10/09/22 12:00 10/09/22 12:15 Temperature 97.8 F Pulse Rate 74 74 Respiratory Rate 23 36 H Blood Pressure 134/67 O2 Sat by Pulse Oximetry 90 L 94 L Oxygen Delivery Method Oxygen Flow Rate FIO2% 10/09/22 12:30 10/09/22 12:45 10/09/22 13:00 Temperature Pulse Rate 109 H 75 108 H Respiratory Rate 43 H 31 H 27 H Blood Pressure O2 Sat by Pulse Oximetry 91 L 90 L 87 L Oxygen Delivery Method Oxygen Flow Rate FIO2% 10/09/22 13:15 10/09/22 13:30 10/09/22 13:31 Temperature Pulse Rate 102 H 103 H 99 H Respiratory Rate 35 H 44 H 37 H Blood Pressure O2 Sat by Pulse Oximetry 90 L 87 L 86 L Oxygen Delivery Method Oxygen Flow Rate FIO2% 10/09/22 13:31 10/09/22 13:45 10/09/22 14:00 Temperature Pulse Rate 72 Respiratory Rate 18 Blood Pressure 116/61 101/52 O2 Sat by Pulse Oximetry 94 L Oxygen Delivery Method Oxygen Flow Rate FIO2% 10/09/22 14:00 10/09/22 14:15 10/09/22 14:30 Temperature Pulse Rate 71 72 72 Respiratory Rate 17 16 17 Blood Pressure O2 Sat by Pulse Oximetry 96 93 L 99 Oxygen Delivery Method Oxygen Flow Rate FIO2% 10/09/22 14:45 10/09/22 15:00 10/09/22 15:01 Temperature Pulse Rate 73 74 Respiratory Rate 38 H 58 H Blood Pressure 101/76 O2 Sat by Pulse Oximetry 95 93 L Oxygen Delivery Method Oxygen Flow Rate FIO2% 10/09/22 15:01 10/09/22 15:15 10/09/22 15:30 Temperature Pulse Rate 89 75 73 Respiratory Rate 40 H 41 H 18 Blood Pressure O2 Sat by Pulse Oximetry 87 L 93 L 92 L Oxygen Delivery Method Oxygen Flow Rate FIO2% 10/09/22 15:45 10/09/22 16:00 10/09/22 16:00 Temperature 97.4 F L Pulse Rate 73 73 Respiratory Rate 23 20 Blood Pressure 121/58 O2 Sat by Pulse Oximetry 96 94 L Oxygen Delivery Method Oxygen Flow Rate FIO2% 10/09/22 16:15 10/09/22 16:30 10/09/22 16:45 Temperature Pulse Rate 74 74 76 Respiratory Rate 19 24 30 H Blood Pressure O2 Sat by Pulse Oximetry 95 94 L 95 Oxygen Delivery Method Oxygen Flow Rate FIO2% 10/09/22 17:00 10/09/22 17:00 10/09/22 17:15 Temperature Pulse Rate 75 75 Respiratory Rate 23 20 Blood Pressure 133/63 O2 Sat by Pulse Oximetry 92 L 93 L Oxygen Delivery Method Oxygen Flow Rate FIO2% 10/09/22 17:30 10/09/22 17:45 10/09/22 18:00 Temperature Pulse Rate 84 90 Respiratory Rate 28 H 30 H Blood Pressure 149/72 O2 Sat by Pulse Oximetry 94 L 93 L Oxygen Delivery Method Oxygen Flow Rate FIO2% 10/09/22 18:00 10/09/22 18:15 10/09/22 19:00 Temperature Pulse Rate 100 H 99 H 78 Respiratory Rate 29 H 18 17 Blood Pressure 113/71 O2 Sat by Pulse Oximetry 92 L 92 L 93 L Oxygen Delivery Method Nasal Cannula Oxygen Flow Rate 3 FIO2% 10/09/22 19:00 10/09/22 20:00 10/09/22 20:15 Temperature 97.9 F Pulse Rate 74 Respiratory Rate 17 18 Blood Pressure 128/58 O2 Sat by Pulse Oximetry 96 Oxygen Delivery Method Nasal Cannula Nasal Cannula Oxygen Flow Rate 3 3 FIO2% 10/09/22 21:00 10/09/22 22:00 10/09/22 21:15 Temperature Pulse Rate 75 73 Respiratory Rate 16 18 22 Blood Pressure 125/51 117/56 O2 Sat by Pulse Oximetry 98 95 Oxygen Delivery Method Nasal Cannula Nasal Cannula Oxygen Flow Rate 3 3 FIO2% 10/09/22 23:00 10/10/22 00:00 10/10/22 01:00 Temperature 97.6 F Pulse Rate 73 76 72 Respiratory Rate 16 21 20 Blood Pressure 137/66 123/58 128/61 O2 Sat by Pulse Oximetry 93 L 93 L 95 Oxygen Delivery Method Nasal Cannula Nasal Cannula Nasal Cannula Oxygen Flow Rate 3 3 3 FIO2% 10/09/22 20:36 10/09/22 20:36 10/10/22 02:00 Temperature Pulse Rate 74 72 Respiratory Rate 16 Blood Pressure 123/60 O2 Sat by Pulse Oximetry 94 L 95 Oxygen Delivery Method Nasal Cannula Nasal Cannula Oxygen Flow Rate 3 3 FIO2% 32 10/10/22 03:00 10/10/22 04:00 10/10/22 05:00 Temperature 97.7 F Pulse Rate 71 72 72 Respiratory Rate 16 16 16 Blood Pressure 124/61 130/62 118/57 O2 Sat by Pulse Oximetry 94 L 92 L 93 L Oxygen Delivery Method Nasal Cannula Nasal Cannula Nasal Cannula Oxygen Flow Rate 3 3 3 FIO2% 10/10/22 06:00 10/10/22 08:24 10/10/22 08:24 Temperature Pulse Rate 72 Respiratory Rate 22 Blood Pressure 132/64 O2 Sat by Pulse Oximetry 93 L 92 L Oxygen Delivery Method Nasal Cannula Nasal Cannula Oxygen Flow Rate 3 3 FIO2% 32 10/10/22 07:00 10/10/22 02:45 10/10/22 03:00 Temperature Pulse Rate 71 Respiratory Rate 15 Blood Pressure 124/61 O2 Sat by Pulse Oximetry 93 L Oxygen Delivery Method Nasal Cannula Oxygen Flow Rate 3 FIO2% 10/10/22 03:00 10/10/22 03:15 10/10/22 03:30 Temperature Pulse Rate 71 71 72 Respiratory Rate 15 16 14 Blood Pressure O2 Sat by Pulse Oximetry 91 L 94 L 95 Oxygen Delivery Method Oxygen Flow Rate FIO2% 10/10/22 03:45 10/10/22 04:00 10/10/22 04:00 Temperature Pulse Rate 72 72 Respiratory Rate 14 17 Blood Pressure 130/62 O2 Sat by Pulse Oximetry 93 L 91 L Oxygen Delivery Method Oxygen Flow Rate FIO2% 10/10/22 04:15 10/10/22 04:30 10/10/22 04:45 Temperature Pulse Rate 72 72 72 Respiratory Rate 22 14 15 Blood Pressure O2 Sat by Pulse Oximetry 92 L 93 L 92 L Oxygen Delivery Method Oxygen Flow Rate FIO2% 10/10/22 05:00 10/10/22 05:00 10/10/22 05:15 Temperature Pulse Rate 72 71 Respiratory Rate 15 15 Blood Pressure 118/57 O2 Sat by Pulse Oximetry 90 L 92 L Oxygen Delivery Method Oxygen Flow Rate FIO2% 10/10/22 05:30 10/10/22 05:45 10/10/22 06:00 Temperature Pulse Rate 71 72 Respiratory Rate 15 22 Blood Pressure 132/64 O2 Sat by Pulse Oximetry 93 L 94 L Oxygen Delivery Method Oxygen Flow Rate FIO2% 10/10/22 06:00 10/10/22 06:15 10/10/22 06:30 Temperature Pulse Rate 72 73 74 Respiratory Rate 16 18 21 Blood Pressure O2 Sat by Pulse Oximetry 93 L 93 L 94 L Oxygen Delivery Method Oxygen Flow Rate FIO2% 10/10/22 06:45 10/10/22 07:00 10/10/22 07:00 Temperature Pulse Rate 74 73 Respiratory Rate 19 18 Blood Pressure 133/63 O2 Sat by Pulse Oximetry 93 L 90 L Oxygen Delivery Method Oxygen Flow Rate FIO2% 10/10/22 07:15 10/10/22 07:30 10/10/22 07:45 Temperature Pulse Rate 73 73 87 Respiratory Rate 18 19 46 H Blood Pressure O2 Sat by Pulse Oximetry 92 L 94 L 92 L Oxygen Delivery Method Oxygen Flow Rate FIO2% 10/10/22 08:00 10/10/22 08:00 10/10/22 08:15 Temperature 97.4 F L Pulse Rate 92 H 97 H Respiratory Rate 54 H 34 H Blood Pressure 119/56 O2 Sat by Pulse Oximetry 91 L 92 L Oxygen Delivery Method Oxygen Flow Rate FIO2% 10/10/22 08:30 10/10/22 08:45 10/10/22 09:00 Temperature Pulse Rate 100 H 107 H Respiratory Rate 21 22 Blood Pressure 93/59 O2 Sat by Pulse Oximetry 96 90 L Oxygen Delivery Method Oxygen Flow Rate FIO2% 10/10/22 09:00 10/10/22 09:15 10/10/22 09:30 Temperature Pulse Rate 111 H 111 H 116 H Respiratory Rate 33 H 36 H 51 H Blood Pressure O2 Sat by Pulse Oximetry 90 L 84 L 88 L Oxygen Delivery Method Oxygen Flow Rate FIO2% 10/10/22 09:45 10/10/22 10:00 10/10/22 10:00 Temperature Pulse Rate 75 76 Respiratory Rate 16 19 Blood Pressure 100/56 O2 Sat by Pulse Oximetry 94 L 93 L Oxygen Delivery Method Oxygen Flow Rate FIO2% 10/10/22 10:15 10/10/22 10:30 10/10/22 10:45 Temperature Pulse Rate 75 75 95 H Respiratory Rate 19 22 56 H Blood Pressure O2 Sat by Pulse Oximetry 92 L 92 L 93 L Oxygen Delivery Method Oxygen Flow Rate FIO2% 10/10/22 11:00 10/10/22 11:00 10/10/22 11:15 Temperature Pulse Rate 74 72 Respiratory Rate 21 15 Blood Pressure 96/54 O2 Sat by Pulse Oximetry 93 L 96 Oxygen Delivery Method Oxygen Flow Rate FIO2% 10/10/22 11:30 10/10/22 11:45 10/10/22 12:00 Temperature Pulse Rate 72 72 Respiratory Rate 17 18 Blood Pressure 118/58 O2 Sat by Pulse Oximetry 95 95 Oxygen Delivery Method Oxygen Flow Rate FIO2% 10/10/22 12:00 10/10/22 12:15 10/10/22 12:30 Temperature Pulse Rate 71 72 73 Respiratory Rate 17 19 31 H Blood Pressure O2 Sat by Pulse Oximetry 91 L 95 96 Oxygen Delivery Method Oxygen Flow Rate FIO2% 10/10/22 12:45 10/10/22 13:00 10/10/22 13:00 Temperature Pulse Rate 72 71 Respiratory Rate 19 33 H Blood Pressure 121/61 O2 Sat by Pulse Oximetry 94 L 93 L Oxygen Delivery Method Oxygen Flow Rate FIO2% 10/10/22 13:15 10/10/22 13:30 10/10/22 13:45 Temperature Pulse Rate 72 72 72 Respiratory Rate 35 H 33 H 20 Blood Pressure O2 Sat by Pulse Oximetry 93 L 94 L 93 L Oxygen Delivery Method Oxygen Flow Rate FIO2% 10/10/22 14:00 10/10/22 14:00 10/10/22 14:15 Temperature Pulse Rate 71 71 Respiratory Rate 19 15 Blood Pressure 111/56 O2 Sat by Pulse Oximetry 91 L 93 L Oxygen Delivery Method Oxygen Flow Rate FIO2% 10/10/22 14:30 10/10/22 14:45 10/10/22 15:00 Temperature Pulse Rate 69 71 Respiratory Rate 16 15 Blood Pressure 114/59 O2 Sat by Pulse Oximetry 96 94 L Oxygen Delivery Method Oxygen Flow Rate FIO2% 10/10/22 15:00 10/10/22 15:15 10/10/22 15:30 Temperature Pulse Rate 71 71 71 Respiratory Rate 18 15 27 H Blood Pressure O2 Sat by Pulse Oximetry 94 L 97 95 Oxygen Delivery Method Oxygen Flow Rate FIO2% 10/10/22 15:45 10/10/22 16:00 10/10/22 16:00 Temperature Pulse Rate 71 71 Respiratory Rate 22 34 H Blood Pressure 111/55 O2 Sat by Pulse Oximetry 96 90 L Oxygen Delivery Method Oxygen Flow Rate FIO2% Labs: Laboratory Last Values WBC 6.9 X10^3/uL (3.6-10.0) 10/10/22 04:10 RBC 5.12 X10^6/uL (4.7-6.0) 10/10/22 04:10 Hgb 13.1 g/dL (13.5-18.0) L 10/10/22 04:10 Hct 40.0 % (42.0-54.0) L 10/10/22 04:10 MCV 78.0 fL (80.0-100.0) L 10/10/22 04:10 MCH 25.6 pg (27.0-34.0) L 10/10/22 04:10 MCHC 32.8 g/dL (33.0-35.0) L 10/10/22 04:10 RDW 18.1 % (11.6-16.5) H 10/10/22 04:10 Plt Count 197 X10^3/uL (150.0-450.0) 10/10/22 04:10 MPV 8.3 fL (7.4-11.0) 10/10/22 04:10 Neut % (Auto) 67.2 % (42.0-75.0) 10/10/22 04:10 Lymph % (Auto) 20.4 % (21.0-51.0) L 10/10/22 04:10 [place] % (Auto) 10.4 % (0.0-13.0) 10/10/22 04:10 Eos % (Auto) 1.3 % (0.9-2.9) 10/10/22 04:10 Baso % (Auto) 0.7 % (0.2-1.0) 10/10/22 04:10 Neut # (Auto) 4.6 x10^3/uL (2.2-4.8) 10/10/22 04:10 Lymph # (Auto) 1.4 X10^3/uL (1.3-2.9) 10/10/22 04:10 [place] # (Auto) 0.7 x10^3/uL (0.3-0.8) 10/10/22 04:10 Eos # (Auto) 0.1 x10^3/uL (0.0-0.2) 10/10/22 04:10 Baso # (Auto) 0.0 X10^3/uL (0.0-0.1) 10/10/22 04:10 Absolute Nucleated RBC 0.0 /100WBC 10/10/22 04:10 PT 14.0 SECONDS (11.8-14.3) 10/03/22 14:02 INR Target Range - 10/03/22 14:02 INR 1.11 (0.8-1.3) 10/03/22 14:02 APTT 36.4 SECONDS (22.9-36.5) 10/03/22 14:02 PTT Comment - 10/03/22 14:02 Sodium 136 mmol/L (136-145) 10/10/22 04:10 Corrected Sodium TNP 10/10/22 04:10 Potassium 4.3 mmol/L (3.5-5.1) 10/10/22 04:10 Chloride 94 mmol/L (98-107) L 10/10/22 04:10 Carbon Dioxide 38.5 mmol/L (21-32) H 10/10/22 04:10 BUN 20 mg/dL (7-18) H 10/10/22 04:10 Creatinine 1.02 mg/dL (0.70-1.30) 10/10/22 04:10 Est GFR (MDRD) Af Amer > 60 (>60) 10/10/22 04:10 Est GFR (MDRD) Non-Af > 60 (>60) 10/10/22 04:10 Glucose 100 mg/dL (65-99) H 10/10/22 04:10 Calcium 9.1 mg/dL (8.5-10.1) 10/10/22 04:10 Corrected Calcium 10.1 mg/dL (8.5-10.1) 10/10/22 04:10 Total Bilirubin 0.90 mg/dL (0.2-1.0) 10/10/22 04:10 AST 24 Units/L (15-37) 10/10/22 04:10 ALT 27 Units/L (12-78) 10/10/22 04:10 Alkaline Phosphatase 92 Units/L (46-116) 10/10/22 04:10 Creatine Kinase 53 Units/L (39-308) 10/03/22 14:02 Troponin I High Sens 124.4 ng/L (4.0-60.0) H* 10/10/22 04:10 B-Natriuretic Peptide 462 pg/mL (0-79) H 10/10/22 04:10 Total Protein 6.6 g/dL (6.4-8.2) 10/10/22 04:10 Albumin 2.8 g/dL (3.4-5.0) L 10/10/22 04:10 Globulin 3.8 g/dL (2.5-4.5) 10/10/22 04:10 Albumin/Globulin Ratio 0.7 Ratio (1.1-2.1) L 10/10/22 04:10 Digoxin 1.18 ng/mL (0.9-2) 10/09/22 02:07 Reason For Visit: CRITICAL ISCHEMIA LEFT LEG Discharge Date Discharge Date: 10/10/22 Discharge Diagnosis All Active Problems (Updated 10/07/22 @ 10:28 by Chance Lopez) COPD (chronic obstructive pulmonary disease) (Chronic) HTN (hypertension) (Chronic) Acute bronchitis (Acute) Pneumonia (Acute) Anemia (Acute) Atrial fibrillation with rapid ventricular response (Acute) CHF exacerbation (Acute) Venous ulcer of lower extremity due to chronic peripheral venous hypertension (Acute) Venous insufficiency of both lower extremities (Chronic) COPD exacerbation (Acute) Plan of Treatment: Continue with present treatment and follow up plan. Pt is to keep follow up appointment as instructed and take medications as ordered. Discharge Medications Discharge Medications: No Known Drug Allergies Allergy (Verified 01/16/22 13:44) CONTINUE taking the following medications fluticasone fur. 200 mcg-umeclid 62.5 mcg-vilant 25 mcg inhalat.powder (Trelegy Ellipta) 1 puff inhalation QDAY 10/02/22 [History] New Prescriptions apixaban 5 mg tablet (Eliquis) 5 mg PO BID #60 tabs 10/10/22 [Rx] diltiazem HCl 120 mg capsule,extended release 24 hr 120 mg PO DAILY #30 caps 10/10/22 [Rx] metoprolol tartrate 50 mg tablet 50 mg PO BID #60 tabs 10/10/22 [Rx] oxycodone-acetaminophen 5 mg-325 mg tablet 1 tab PO Q4H PRN #30 tabs 10/10/22 [Rx] rosuvastatin 10 mg tablet 10 mg PO HS #30 tabs 10/10/22 [Rx] Discharge Disposition Assessment: see hospital course above Discharge Plan Discharge Plan Hospital Course: This 71 year old male was seen in the office on October 01 with complaints of pain in the left leg and non-healing wounds to the dorsum the left foot and left medial ankle for many months He was admitted at that time for evaluation and IV antibiotics . 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 Ankle brachial indices from a previous study were near normal and probably in error . Admitted October 01 and on October 03 taken to the operating room for iliac venograms and intravascular ultrasound of the veins with possible stenting of the left common iliac vein . In the OR he became short of breath and could not lie down flat and his heart rate went to 147 which was consistent with atrial fibrillation and was hypertensive. The case was canceled and he was taken to the ICU. He had elevated BNP well as elevated troponin. The troponin was 147 however, that did not change 6 hours later . This is not very consistent with myocardial ischemia. He was seen in consultation by Chance Lopez and started on digoxin and beta denisse. Continued to have shortness of breath with elevated BNP and chest Xrays consistent with congestive heart failure. He was also treated with IV lasix .He did improve and we were planning on taking him to the operating suite October 08 but he became more short of breath. That surgery was also cancelled and he was seen in consultation by Dr Lin , Cardiology. Dr. Lin started him on a calcium channel denisse and discontin ued the digoxin . He had been on therapeutic Lovenox in anticipation of the surgery however that has been canceled and he was placed on Eliquis 5 mg BID. Shortness of breath is much improved. He was discharged today and plans to follow up with Doctor Lin next week and plans for a Lexiscan stress test. This will need to be accomplished before he can receive any type of surgical intervention. He will follow up with Dr. Edward after his cardiac evaluation is complete. Patient Disposition: 01 HOME, SELF-CARE Condition: Stable Health Concerns: Post Hospitalization: new medications and changes needed to prevent readmission or further decline. Pt educated and given instructions on all concerns. Care Plan Goals: Problem: Altered Tissue Perfusion Goal: Adequate Tissue Perfusion Instructions: Follow provided instructions. Follow up with primary physician as directed. Contact primary care physician or report to the closest Emergency Room if condition worsens. Plan of Treatment: Continue with present treatment and follow up plan. Pt is to keep follow up appointment as instructed and take medications as ordered. Assessment: see hospital course above Prescription drug monitoring program results: PDMP reviewed and no concerns identified Prescriptions: New oxycodone-acetaminophen 5-325 mg Tablet 1 tab PO Q4H MDD 4 PRNQty: 30 0RF metoprolol tartrate 50 mg Tablet 50 mg PO BID Qty: 60 3RF diltiazem HCl 120 mg Capsule,Extended Release 24hr 120 mg PO DAILY Qty: 30 3RF rosuvastatin 10 mg Tablet 10 mg PO HS Qty: 30 3RF Eliquis 5 mg Tablet 5 mg PO BID Qty: 60 3RF Continued hydrocodone-acetaminophen 5-325 mg tablet 1 tab PO Q6H PRN (Reason: pain) furosemide 20 mg tablet 20 mg PO DAILY PRN (Reason: edema) Label Comments: [NO ORIGINAL SIG] albuterol sulfate [Ventolin HFA] 90 mcg/actuation HFA aerosol inhaler 2 puff inhalation Q6H PRN Stiolto Respimat 2.5-2.5 mcg/actuation mist 2 puff inhalation QDAY Trelegy Ellipta 200-62.5-25 mcg blister with device 1 puff inhalation QDAY Follow ups/Referrals Follow ups/Referrals: Guancao Diaz [STAFF PHYSICIAN] - (Referral sent to office on 10/10/22) ARIEL MAN [Primary Care Provider] - (Follow up as needed ) Hollis Edward [STAFF PHYSICIAN] - 10/23/22 2:30 pm Instructions Instructions: Chronic Obstructive Pulmonary Disease Exacerbation, [id number], Chronic Venous Insufficiency, Heart Failure, Diagnosis, [id number], Atrial Fibrillation, [id number]
== END 2022-10-10 17:15 | disposition home or self-care (01) | DRG 299 ==
LOC: ICU 17:15 → MED/SURG 17:30 → ICU 10-03 13:59
PROVIDERS: ADMIT Surgery; ATTEND Surgery
DX: I83.025 Varicose veins of left lower extremity with ulcer other part of foot; R77.8 Other specified abnormalities of plasma proteins; I11.0 Hypertensive heart disease with heart failure; Z53.8 Procedure and treatment not carried out for other reasons; Z85.118 Personal history of other malignant neoplasm of bronchus and lung; J44.9 Chronic obstructive pulmonary disease, unspecified; Z99.81 Dependence on supplemental oxygen; J18.8 Other pneumonia, unspecified organism; I70.222 Atherosclerosis of native arteries of extremities with rest pain, left leg; R06.02 Shortness of breath; I87.2 Venous insufficiency (chronic) (peripheral); R60.0 Localized edema; I48.91 Unspecified atrial fibrillation; I86.8 Varicose veins of other specified sites; D64.89 Other specified anemias; R00.0 Tachycardia, unspecified; I50.9 Heart failure, unspecified; L97.529 Non-pressure chronic ulcer of other part of left foot with unspecified severity